=== PATIENT | male | born 1965 | race Caucasian/White ===

== ENCOUNTER 2024-04-10 11:46 | Inpatient (IN) ==
--- NOTE | 2024-04-10 12:11 | Emergency Department Note ---
Impression & Plan Chest pain, Elevated troponin ADMIT ED Provider Note HPI: History obtained from patient. The patient is a 58-year-old gentleman who presents the emergency department with a chief complaint of substernal chest pain that is been ongoing since last night. Patient states his pain has been relatively consistent, it is substernal in nature and he describes it as a "burning". Patient states he went to see his primary care doctor today and was advised to come to the emergency department for further assessment and to rule out ACS. On arrival here to the ED the patient is hemodynamically stable, he otherwise appears to be in no acute distress. ROS: - Per HPI Differential Diagnosis: Acute coronary syndrome, esophagitis, gastritis, acute pancreatitis, aortic dissection, pulmonary embolism, amongst other potential pathologies. *Outpatient medications and allergy history reviewed. PE: General: Alert HEENT: Normocephalic, trachea midline Eyes: Extraocular eye movement is intact, no scleral erythema Pulmonary: Clear to auscultation bilaterally, no wheezing Cardio: Regular rate and rhythm GI: Abdomen is soft to palpation : No suprapubic tenderness MSK: No evidence of trauma or malformation of the extremities, no edema Skin: No evidence of rash Neuro: Alert, no focal deficits Psychiatric: Cooperative INDEPENDENT INTERPRETATIONS: alarm security or surveillance monitor: (As interpreted by myself): - An order was placed for continuous cardiac monitoring - Patient was noted to be in sinus rhythm with a rate of 50 EKG: (As interpreted by myself): Rate: 51 Rhythm: Sinus bradycardia Intervals: Within normal limits ST changes: No ST elevation Time: 1156 Chest x-ray: (As interpreted by myself): Nonspecific opacities in the bilateral lower lung area Interventions provided in ED: -Aspirin, patient declined analgesia Medical Decision Making: IV was established and lab work obtained, patient was placed on campus monitor. Lab work shows no leukocytosis, hemoglobin is normal, platelet count is normal, CMP does not show any evidence of any critical findings, high-sensitivity troponin level does return at 166. EKG per my interpretation does not show any evidence of any ST elevation, patient states his chest pain is improved on my reassessment. He was given an aspirin in the ED. Chest x-ray suggestive of some bilateral lower lung reticulonodular opacities that are nonspecific in nature per the interpreting radiologist, could be inflammatory or infectious per the interpreting radiologist, low suspicion for infection at this time as the patient has not had any cough, fever, or leukocytosis. I discussed the above findings with the patient and his at the bedside, the patient expressed surprise at my suggestion of admission and initially was hesitant to be admitted however following further discussion with him and his at the bedside he was eventually agreeable to be admitted. I do feel that he should be admitted for further testing including possible diagnostic catheterization given his recent symptoms and elevated troponin. He appears comfortable and EKG does not suggest ST elevation DC therefore I do not feel that he needs emergent catheterization. I did discuss the patient's case with the on-call hospitalist service for [facility], I discussed the case with the on-call midlevel admitting provider, and the patient was placed for admission to the service of Dr. Ho. Consultants/Discussions held with other healthcare providers: -HospitalistDr. Ho Disposition discussion held by myself with: -Patient and patient's at the bedside Diagnosis: 1. Chest pain, acute 2. Elevated high-sensitivity troponin level, acute Disposition: Admission Ryan Foster DO Emergency Medicine Past Med/Surg History Problem List (Updated 04/10/24 @ 21:40 by Ryan Foster DO) NSTEMI (non-ST elevated myocardial infarction) Elevated troponin (Acute) Chest pain (Acute) Medical History CKD (chronic kidney disease), stage III Obesity Adjustment disorder Anxiety Hyperlipidemia DM type 2 (diabetes mellitus, type 2) HTN (hypertension) Social History Tobacco Type: Smokeless Tobacco (Dip or Chew) Second Hand Exposure: No; Do You Dip or Chew Tobacco: Yes; Hx Alcohol Use: Yes Alcohol type: beer and hard liquor Hx Substance Use: No Preferred Language: Moldovan Communication Ability: Effective Drama Teacher Required: No Beliefs That Will Affect Care: None Current Living Situation: Spouse Other Information That Helps Us Care for You: No Feels Safe at Home: Yes Safety Concerns: Feels Safe At This Time Assistive Devices: Glasses and Hearing Aid - Bilateral Allergies Allergies Allergy/AdvReac Type Severity Reaction Status Date / Time No Known Allergies Allergy Unverified 04/10/24 13:36 Home Meds Home Medications Medication Instructions Recorded Confirmed atorvastatin 40 mg tablet 40 mg PO QAM 04/10/24 04/10/24 empagliflozin 25 mg tablet 25 mg PO QAM 04/10/24 04/10/24 (Jardiance) glimepiride 4 mg tablet 4 mg PO QAM 04/10/24 04/10/24 hydrochlorothiazide 25 mg tablet 25 mg PO QAM 04/10/24 04/10/24 lisinopril 40 mg tablet 40 mg PO QAM 04/10/24 04/10/24 sertraline 100 mg tablet 50 mg PO QAM 04/10/24 04/10/24 Results & Data (ED) Vital Signs Vital Signs - 24 hr 04/10/24 11:51 04/10/24 11:56 04/10/24 11:56 Temperature 36.7 C Temperature Source Skin Pulse Rate 63 Pulse Rate [Finger] 72 Pulse Rhythm [Finger] Pulse Strength [Finger] Respiratory Rate 16 18 Respiratory Effort / Characteristics Non-Labored Spontaneous Respiratory Depth Normal Respiratory Pattern Regular Blood Pressure 134/94 Blood Pressure [Right Arm] 130/92 Blood Pressure Mean 107 Blood Pressure Mean [Right Arm] 104 Blood Pressure Position [Right Arm] Lying Pulse Oximetry 96 94 Oxygen Delivery Method Room Air Room Air Room Air Sepsis Recent Fever Within 48 Hours No Sepsis New/Unexplained Change in Mental Status N/A Sepsis Action Taken by Nursing No Action Required 04/10/24 12:19 04/10/24 12:25 04/10/24 14:00 Temperature Temperature Source Pulse Rate 68 Pulse Rate [Finger] 72 Pulse Rhythm [Finger] Regular Pulse Strength [Finger] Normal Respiratory Rate 20 Respiratory Effort / Characteristics Non-Labored Spontaneous Respiratory Depth Normal Respiratory Pattern Regular Blood Pressure Blood Pressure [Right Arm] 143/92 H Blood Pressure Mean Blood Pressure Mean [Right Arm] 109 Blood Pressure Position [Right Arm] Pulse Oximetry 96 96 Oxygen Delivery Method Room Air Room Air Sepsis Recent Fever Within 48 Hours Sepsis New/Unexplained Change in Mental Status Sepsis Action Taken by Nursing Laboratory Data 04/10/24 12:00 04/10/24 12:00 Lab Results 04/10/24 04/10/24 Range/Units 12:00 13:53 WBC 9.41 (4.8-10.8) K/ul RBC 4.96 (4.70-6.10) M/uL Hgb 16.4 (14.0-18.0) g/dl Hct 45.3 (42.0-52.0) % MCV 91.3 (80.0-100.0) fL MCH 33.1 (25.0-34.0) pg MCHC 36.2 H (32.0-36.0) g/dL RDW Std Deviation 41.5 (36.4-46.3) fL RDW Coeff of Curt 12.6 (11.5-14.5) % Plt Count 275 (130-400) K/uL MPV 10.7 (9.4-12.4) fL Immature Gran % (Auto) 0.4 % Neut % (Auto) 71.4 % Lymph % (Auto) 19.4 % [place] % (Auto) 7.0 % Eos % (Auto) 0.9 % Baso % (Auto) 0.9 % Neut # (Auto) 6.72 H (1.40-6.50) K/uL Lymph # (Auto) 1.83 (1.20-3.40) K/uL [place] # (Auto) 0.66 H (0.11-0.59) K/uL Eos # (Auto) 0.08 (0.00-0.50) K/uL Baso # (Auto) 0.08 (0.00-0.20) K/uL Immature Gran # (Auto) 0.04 (0.01-0.20) K/uL PT 10.3 (9.0-12.0) Seconds INR 0.9 (0.9-1.1) APTT 24 (21-31) Seconds PTT Ratio 0.9 Sodium 137 (136-145) mmol/L Potassium 4.1 (3.5-5.1) mmol/L Chloride 102 (98-107) mmol/L Carbon Dioxide 28 (21-32) mmol/L Anion Gap 7 (3-11) BUN 17 (6-23) mg/dl Creatinine 1.06 (0.6-1.4) mg/dl Est Cr Clr Drug Dosing 105.1 ml/min eGFR 82.37 BUN/Creatinine Ratio 16.0 (10-20) Glucose 173 H (70-99(Fasting)) mg/dl Calcium 9.4 (8.6-10.3) mg/dl Total Bilirubin 0.6 (0.2-1.0) mg/dl AST 18 (13-39) U/L ALT 29 (7-52) U/L Alkaline Phosphatase 78 (34-104) U/L Troponin I High Sens 166.9 H* 215.9 H* D (0-20) pg/ml Total Protein 7.3 (6.0-8.3) gm/dl Albumin 4.2 (3.4-5.0) gm/dl Globulin 3.1 (2.5-4.0) gm/dl Albumin/Globulin Ratio 1.4 (0.9-2) Lipase 16 (11-82) U/L Administered Medications Insulin Aspart (Insulin Aspart Per Unit Charge) 0 units SC ACHS ODESSA Stop: 05/10/24 16:37 Last Admin: 04/10/24 20:36 Dose: 3 units Documented By: DARIN Co-signed By: RADHA Admin: 04/10/24 17:24 Dose: 5 units Documented By: SHAREE Co-signed By: GORAN Ticagrelor (Ticagrelor 90 Mg Tab) 90 mg PO BID ODESSA Stop: 05/10/24 20:59 Last Admin: 04/10/24 20:37 Dose: 90 mg Documented By: DARIN Discontinued Medications Aspirin (Aspirin Chew 324 Mg) 324 mg PO NOW STA Stop: 04/10/24 13:14 Last Admin: 04/10/24 13:25 Dose: 324 mg Documented By: PUSHPA Atorvastatin Calcium (Atorvastatin 40 Mg Tab) 40 mg PO ONE ONE Stop: 04/10/24 15:01 Last Admin: 04/10/24 17:02 Dose: 40 mg Documented By: SHAREE Atropine Sulfate (Atropine Sulfate 0.1 Mg/Ml 10ml Syr) Confirm Administered Dose 1 mg IV .STK-MED ONE Stop: 04/10/24 16:01 Last Admin: 04/10/24 16:07 Dose: 1 mg Documented By: COLTEN Fentanyl Citrate (Fentanyl Citrate Pf 100 Mcg/2 Ml Vial) Confirm Administered Dose 100 mcg .ROUTE .STK-MED ONE Stop: 04/10/24 14:59 Last Increment: 04/10/24 16:13 Dose: 25 mcg Documented By: [id number] Heparin Sodium (Porcine) (Heparin (Porcine) 1000 Unit/Ml 10 Ml (Four H Agent Use Only)) Confirm Administered Dose 10,000 units .ROUTE .STK-MED ONE Stop: 04/10/24 14:59 Last Admin: 04/10/24 16:22 Dose: 11,000 units Documented By: COLTEN Heparin Sodium (Porcine) (Heparin (Porcine) 1000 Unit/Ml 10 Ml (Four H Agent Use Only)) Confirm Administered Dose 10,000 units .ROUTE .STK-MED ONE Stop: 04/10/24 16:21 Last Admin: 04/10/24 16:23 Dose: Not Given Documented By: COLTEN Heparin Sodium/Dextrose (Heparin Iv Adult Wt-Based Standard *No* Initial Bolus Protocol) 1 each IV ONE STA; Protocol Stop: 04/10/24 14:24 Last Admin: 04/10/24 17:08 Dose: Not Given Documented By: SHAREE Heparin Sodium/Sodium Chloride (Heparin In Nss Infusion 1000 Unit/500 Ml (2 U/Ml) Bag) Confirm Administered Dose 3,000 units IV .STK-MED ONE Stop: 04/10/24 14:59 Last Admin: 04/10/24 16:05 Dose: 3,000 units Documented By: CULLEN Heparin Sodium/Dextrose (Heparin Sodium/Dextrose) 25,000 units in 500 mls @ 34 mls/hr IV .[id number] [facility]; Protocol Stop: 05/10/24 14:44 Last Admin: 04/10/24 17:08 Dose: Not Given Documented By: SHAREE Ioversol (Optiray 350) Confirm Administered Dose 1 ml .ROUTE .STK-MED ONE Stop: 04/10/24 14:59 Last Admin: 04/10/24 16:14 Dose: 180 ml Documented By: CULLEN Midazolam HCl (Midazolam Hcl 1 Mg/Ml 2ml Vial) Confirm Administered Dose 2 mg .ROUTE .STK-MED ONE Stop: 04/10/24 14:58 Last Increment: 04/10/24 16:13 Dose: 1 mg Documented By: COLTEN Nicardipine HCl (Nicardipine 2,000 Mcg/20 Ml Syr) Confirm Administered Dose 2,000 mcg .ROUTE .STK-MED ONE Stop: 04/10/24 14:59 Last Admin: 04/10/24 16:06 Dose: 2,000 mcg Documented By: CULLEN Nitroglycerin/Dextrose (Nitroglycerin/D5w 100mcg/Ml 20ml Syr) Confirm Administered Dose 2,000 mcg .ROUTE .STK-MED ONE Stop: 04/10/24 14:59 Last Admin: 04/10/24 16:07 Dose: 2,000 mcg Documented By: CULLEN Ondansetron HCl (Ondansetron Inj 2 Mg/Ml 2 Ml Vial) Confirm Administered Dose 4 mg .ROUTE .STK-MED ONE Stop: 04/10/24 16:02 Last Admin: 04/10/24 16:07 Dose: 4 mg Documented By: COLTEN Ondansetron HCl (Ondansetron Inj 2 Mg/Ml 2 Ml Vial) Confirm Administered Dose 4 mg .ROUTE .STK-MED ONE Stop: 04/10/24 16:12 Last Admin: 04/10/24 16:23 Dose: 4 mg Documented By: COLTEN Ticagrelor (Ticagrelor 90 Mg Tab) Confirm Administered Dose 180 mg .ROUTE .Dealised- MED ONE Stop: 04/10/24 16:04 Last Admin: 04/10/24 16:14 Dose: 180 mg Documented By: COLTEN Imaging Data Radiologist's Impression: Chest X-Ray 04/10/24 12:03 XR chest 1V portable HISTORY: 58 years-old Male Chest pain, nonspecific COMPARISON: None TECHNIQUE: AP view the chest FINDINGS: Cardiomediastinal and hilar silhouettes are within normal limits. Reticular nodular opacities of lung bases. No pneumothorax, pleural effusion or lobar airspace consolidation. Bones appear grossly intact. IMPRESSION: Bilateral reticulonodular opacities which are most pronounced in the lung bases, likely infectious or inflammatory. ACT 112: Negative or not required by law. The above report was generated using voice recognition software. It may contain grammatical, syntax or spelling errors. Electronically signed by: Paulo Hayes M.D. 04/10/2024 12:28 PM Discharge Plan Visit Data Chief Complaint: Chest Pain Stated Complaint: CHEST PAIN ED Provider: Ryan Foster Discharge Problem: Chest pain, Elevated troponin Patient Disposition: Admitted As Inpatient Discharge Instructions Interventions: ED Discharge Assessment Last Done: 04/10/24 15:10
--- NOTE | 2024-04-10 12:30 | XRay Report ---
XR chest 1V portable HISTORY: 58 years-old Male Chest pain, nonspecific COMPARISON: None TECHNIQUE: AP view the chest FINDINGS: Cardiomediastinal and hilar silhouettes are within normal limits. Reticular nodular opacities of lung bases. No pneumothorax, pleural effusion or lobar airspace consolidation. Bones appear grossly intac t. IMPRESSION: Bilateral reticulonodular opacities which are most pronounced in the lung bases, likely i nfectious or inflammatory. ACT 112: Negative or not required by law. The above report was generated using voice recognition software. It may contain grammatical, syntax o r spelling errors. Electronically signed by: Paulo Hayes M.D. 04/10/2024 12:28 PM
[2024-04-10 12:32] LABS: Basophils # (auto) 0.08 K/uL (0.00-0.20); Basophils % (auto) 0.9 %; Eosinophils # (auto) 0.08 K/uL (0.00-0.50); Eosinophils % (auto) 0.9 %; Hematocrit (blood only) 45.3 % (42.0-52.0); Hemoglobin 16.4 g/dl (14.0-18.0); Immature Granulocytes # (auto) 0.04 K/uL (0.01-0.20); Immature Granulocytes % (auto) 0.4 %; Lymphocytes # (auto) 1.83 K/uL (1.20-3.40); Lymphocytes % (auto) 19.4 %; Mean Corpuscular Hemoglobin 33.1 pg (25.0-34.0); Mean Corpuscular Hgb Conc 36.2 g/dL (32.0-36.0); Mean Corpuscular Volume 91.3 fL (80.0-100.0); Mean Platelet Volume 10.7 fL (9.4-12.4); Monocytes # (auto) 0.66 K/uL (0.11-0.59); Neutrophils # (auto) 6.72 K/uL (1.40-6.50); Neutrophils % (auto) 71.4 %; Platelet Count 275 K/uL (130-400); RDW Coefficient of Variation 12.6 % (11.5-14.5); RDW Standard Deviation 41.5 fL (36.4-46.3); Red Blood Count 4.96 M/uL (4.70-6.10); White Blood Count 9.41 K/ul (4.8-10.8)
[2024-04-10 12:47] LABS: Albumin Globulin Ratio 1.4 (0.9-2); Albumin Level 4.2 gm/dl (3.4-5.0); Bilirubin,Total 0.6 mg/dl (0.2-1.0); Calcium 9.4 mg/dl (8.6-10.3); Creatinine Clr Calc Pharmacy 105.1 ml/min; Globulin 3.1 gm/dl (2.5-4.0); Potassium 4.1 mmol/L (3.5-5.1); Total Protein 7.3 gm/dl (6.0-8.3)
[2024-04-10 13:03] LABS: INR 0.9 (0.9-1.1); Partial Thromboplastin Ratio 0.9; Partial Thromboplastin Time 24 Seconds (21-31); Prothrombin Time 10.3 Seconds (9.0-12.0)
[2024-04-10 13:19] LABS: Troponin I High Sensitivity 166.9 pg/ml (0-20)
[2024-04-10] MEDS: ASPIRIN CHEW 324 MG PO STA (13:25)
--- NOTE | 2024-04-10 13:31 | History & Physical Report ---
Date of Service April 10, 2024 Assessment & Plan (1) Chest pain: (2) Elevated troponin: Plan Gino Denise is a 58-year-old male with past medical history significant for DM type II, dyslipidemia, HTN, CKD stage III and anxiety who presented to the ED via referral from his PCP for evaluation of chest pain. Patient was seen earlier today by his PCP secondary to persistent, dull centralized chest pain since midnight with associated mild nausea. EKG in the outpatient office revealed NSR but possible T wave versions in V3 and V4, therefore he was referred to the ED for further evaluation. Elevated Troponin, Chest Pain Rule-Out: Additional history as per HPI. EKG in the ED personally reviewed and without any overt ST changes. Initial troponin was 166.9 at 12:00 and repeat troponin was 215.9 at 13:53. S/p 324mg ASA in the ED, made NPO. Cardiology consulted; case discussed with Dr. Cifuentes via TT --> Patient was initially going to be placed on IV heparin drip but is now going to the shop laborer with Dr. Do, therefore the IV heparin order was stopped. Echocardiogram results pending. Continue to trend troponin Q6H, EKG daily x 2. Begin ASA 81mg daily tomorrow AM unless otherwise directed by cardiology. SL nitro PRN on board. Appreciate any further cardiology input/recommendations. DM Type II: Hold home agents, SSI regimen while inpatient. BSG checks ACHS. Most recent Hgb A1c was 7.1% approximately 1 month ago as an outpatient. CKD Stage III: Cr stable on admission at 1.06, baseline Cr ~1.1 per chart review. Avoid nephrotoxic meds when able. Monitor renal function closely and renally dose medications when able. Incidental CXR Finding: CXR in the ED revealed bilateral reticulonodular opacities most pronounced at the lung bases, likely infectious versus inflammatory. Presenting labs without evidence of leukocytosis and patient is without any respiratory complaints or sick symptoms - denies any cough, recent infections, fevers/chill or body aches. Procalcitonin pending however low suspicion for infectious etiology as this time, continue to follow. Other Chronic Medical Conditions: * Anxiety - Can continue home Zoloft as prescribed. * HTN - Slightly hypertensive at 143/92 on admission, continue home BP medications for now unless otherwise directed by cardiology. DVT Prophylaxis: SCDs/TEDs for now - patient to shop laborer. Code Status: FULL CODE PCP: Luis Benitez MD Disposition: Admit to PCU/Telemetry following cardiac catheterization. Patient seen in collaboration with Dr. Ho. Please see addendum. I spent a total of 55 minutes coordinating, documenting, and providing care for this patient excluding time spent in the performance of separately billed services. This included personally reviewing all current laboratories and imaging studies, medical reconciliation, outpatient chart review and discussion with specialists. This chart was completed in part utilizing Speech Voice Recognition Software. Grammatical errors, random word insertions, pronoun errors, and incomplete sentences are an occasional consequence of this system due to software limitations, ambient noise, and hardware issues. Any formal questions or concerns about the content, text, or information contained within the body of this dictation should be directly addressed to the provider for clarification. History of Present Illness Chief Complaint: Chest Pain Primary Care Provider: Luis Benitez MD Gino Denise is a 58-year-old male with past medical history significant for DM type II, dyslipidemia, HTN, CKD stage III and anxiety who presented to the ED via referral from his PCP for evaluation of chest pain. History obtained from patient, at bedside and associated chart review. Patient seen at bedside with Dr. Ho. Patient was seen earlier today by his PCP secondary to persistent, dull centralized chest pain since midnight with associated mild nausea. EKG in the outpatient office revealed normal sinus rhythm but possible T wave versions in V3 and V4, therefore he was referred to the ED for further evaluation. EKG in the ED was rather unremarkable however his initial troponin was elevated at 166.9, repeat troponin pending. Patient reports that the pain does intermittently become sharp at times. Pain remains in the central chest re gion and does not radiate. He does not experience any shortness of breath with this pain however he does endorse some nausea as previously mentioned, no episodes of vomiting. When the chest pain started around midnight, it woke him from his sleep. He tried to take some antacids and Pepto-Bismol without any relief of the chest pain. He was loaded with 324mg ASA in the ED. Mentions that his chest pain is unchanged and is currently about a 3 out of 10. Denies any lightheadedness/dizziness. BP has been controlled at home. Mentions his diabetes is well-controlled on his current regimen, BSGs at home run around 130s. Last meal was yesterday at 3PM. Patient reports that he was previously experiencing some intermittent episodes of centralized chest pain last week prior to this acute occurrence. Mentions the pain during those previous episodes felt like it does now. He did not notice any changes with exertion or rest when he had those episodes of chest pain however he did become diaphoretic when the pain would occur - which did not happen today. He has no previous issues with indigestion. Mentions that those episodes of chest pain last week would last anywhere from a few minutes to a couple of hours at most. He did have some nausea with those episodes as well. Patient reports that his father had numerous "heart operations" beginning when he was around 62 years old - he is unsure of the specifics. Patient does use chewing tobacco regularly. Endorses only social alcohol use. No prior history of [place] per patient or his . CXR in the ED revealed bilateral reticulonodular opacities most pronounced at the lung bases, likely infectious versus inflammatory. Presenting labs without evidence of leukocytosis and patient is without any respiratory complaints or sick symptoms - denies any cough, recent infections, fevers/chill or body aches. Procalcitonin pending however low suspicion for infectious etiology as this time. Allergies Allergy/AdvReac Type Severity Reaction Status Date / Time No Known Allergies Allergy Unverified 04/10/24 13:36 Home Medications Medication Instructions Recorded Confirmed Type atorvastatin 40 mg tablet 40 mg PO QAM 04/10/24 04/10/24 History empagliflozin 25 mg tablet 25 mg PO QAM 04/10/24 04/10/24 History (Jardiance) glimepiride 4 mg tablet 4 mg PO QAM 04/10/24 04/10/24 History hydrochlorothiazide 25 mg tablet 25 mg PO QAM 04/10/24 04/10/24 History lisinopril 40 mg tablet 40 mg PO QAM 04/10/24 04/10/24 History sertraline 100 mg tablet 50 mg PO QAM 04/10/24 04/10/24 History Past Med/Surg History Problem List (Updated 04/10/24 @ 15:14 by Oswaldo Cifuentes DO) NSTEMI (non-ST elevated myocardial infarction) Elevated troponin Chest pain Medical History CKD (chronic kidney disease), stage III Obesity Adjustment disorder Anxiety Hyperlipidemia DM type 2 (diabetes mellitus, type 2) HTN (hypertension) Social History Smoking Status: Never smoker Hx Substance Use: No Preferred Language: Taiwanese Feels Safe at Home: Yes Review of Systems Review of Systems: At least ten systems reviewed and negative, except as noted in the HPI. Physical Exam Physical Exam: Please refer to Dr. Ho's addendum for physical examination findings. Results & Data Results & Data Vital Signs (Past 12 Hours) Vital Signs Temp Pulse Pulse Resp BP BP Pulse Ox 04/10/24 12:25 96 04/10/24 12:19 68 04/10/24 11:56 04/10/24 11:56 72 18 130/92 94 04/10/24 11:51 36.7 C 63 16 134/94 96 O2 Del Method 04/10/24 12:25 Room Air 04/10/24 12:19 04/10/24 11:56 Room Air 04/10/24 11:56 Room Air 04/10/24 11:51 Room Air Laboratory Results Short CBC 04/10/24 Range/Units 12:00 WBC 9.41 (4.8-10.8) K/ul Hgb 16.4 (14.0-18.0) g/dl Hct 45.3 (42.0-52.0) % Plt Count 275 (130-400) K/uL BMP 04/10/24 12:00 Sodium 137 Potassium 4.1 Chloride 102 Carbon Dioxide 28 BUN 17 Creatinine 1.06 Glucose 173 H Calcium 9.4 Liver Function 04/10/24 Range/Units 12:00 Total Bilirubin 0.6 (0.2-1.0) mg/dl AST 18 (13-39) U/L ALT 29 (7-52) U/L Alkaline Phosphatase 78 (34-104) U/L Albumin 4.2 (3.4-5.0) gm/dl Diagnostic Findings Chest X-Ray 04/10/24 12:03 XR chest 1V portable HISTORY: 58 years-old Male Chest pain, nonspecific COMPARISON: None TECHNIQUE: AP view the chest FINDINGS: Cardiomediastinal and hilar silhouettes are within normal limits. Reticular nodular opacities of lung bases. No pneumothorax, pleural effusion or lobar airspace consolidation. Bones appear grossly intact. IMPRESSION: Bilateral reticulonodular opacities which are most pronounced in the lung bases, likely infectious or inflammatory. ACT 112: Negative or not required by law. The above report was generated using voice recognition software. It may contain grammatical, syntax or spelling errors. Electronically signed by: Paulo Hayes M.D. 04/10/2024 12:28 PM Medications Administered Discontinued Medications Aspirin (Aspirin Chew 324 Mg) 324 mg PO NOW STA Stop: 04/10/24 13:14 Last Admin: 04/10/24 13:25 Dose: 324 mg Documented By: NJM Code Status & VTE Plan Code Status FULL CODE Supervising Physician Co-Signing Physician Notes Patient is a 58-year-old male with history of diabetes mellitus type 2, hypertension, hyperlipidemia, mood disorder, CKD stage III and other medical problems presents with history of retrosternal chest pain which has been dull aching type, nonradiating associated with nausea. Patient states the chest pain started 2 days ago which spontaneously resolved and yesterday night patient woke up from sleep due to chest pain. He denies any shortness of breath, vomiting, diaphoresis, cough. He denies any exacerbating or relieving factors. Initially presumed to be acid reflux and used Pepto-Bismol which did not help. Please review HPI for complete details of presentation. I personally reviewed blood work and imaging studies. Initial troponin elevated at 166. EKG showed sinus bradycardia with poor R wave progression with no significant ST changes currently. Currently chest pain is 2/10 and is unimproved with aspirin use. Physical Exam: Vitals signs as noted above General Appearance: Obese, no apparent distress Head: normocephalic, Atraumatic Eyes: normal inspection, EOMI Neck: supple, Trachea midline Respiratory/Chest: Normal breath sounds, CTA, No accessory muscle use Cardiovascular: S1, S2, No murmur Abdomen/GI:Soft, Non tender, Bowel sounds present Extremities/Musculoskeletal:normal inspection, trace edema Neurologic/Psych:AAOX3, grossly no focal neurological deficits Skin: normal color, warm Chest pain rule out ACS NSTEMI Troponin elevated Echo showed EF 55 to 60%. Moderate sized septal and anteroseptal wall motion abnormality with hypokinesis of the segments, grade 1 diastolic dysfunction. Received aspirin in ED Initially plan to be started on IV heparin, cardiology recommended heart catheterization Will check HbA1c, lipid panel Nitroglycerin as needed Continue aspirin Appreciate cardiology input Continue home Lipitor, lisinopril Further management based on cath results I personally interviewed and examined at bedside. Patient's care is coordinated with Marge Mcleod PA-C. I have reviewed the advanced practitioner's documentation, and I agree with plan of care. Please refer to the documentation above for details of patient's presentation and for discussion of other issues. I spent a total [id number] coordinating, documenting, and providing care for this patient excluding time spent in the performance of separately billed services. (1) Chest pain Chest pain type: unspecified Qualified Code(s): R07.9 - Chest pain, unspecified
--- NOTE | 2024-04-10 15:18 | Cardiology Consultation ---
Date of Consultation April 10, 2024 Assessment & Plan (1) NSTEMI (non-ST elevated myocardial infarction): Bedside transthoracic echocardiogram was performed in the emergency department revealing normal LVEF in the range of 55 to 60%, there is a subtle distal anteroseptal and distal inferoseptal wall motion abnormality. The patient has already received 324 mg of aspirin. Will proceed with a dose of atorvastatin, home dose of 40 mg x 1 now Case reviewed with Dr. oD with interventional cardiology. Will plan for invasive coronary angiography in an expedited fashion this afternoon. Post procedure will add metoprolol as tolerated. (2) HTN (hypertension): Continue prior to hospital lisinopril and HCTZ. (3) DM type 2 (diabetes mellitus, type 2): Hold glimepiride and Jardiance for now. Insulin sliding scale as needed as per the primary team. (4) Hyperlipidemia: Increase home dose of atorvastatin to 80 mg daily. History of Present Illness History of Present Illness Gino Denise is a 58 year old male seen in cardiology consultation per the request of Marge Mcleod PA-C for the evaluation of chest and with concerns of an acute coronary syndrome. The patient has a history of hypertension, dyslipidemia, and type 2 diabetes mellitus that was diagnosed approximately 3 years ago. He has not followed with cardiology in the past. He states that last week he had on and off again chest discomfort that would last a few hours and then resolved on its own. It did not necessarily seem to be associated with aerobic activity. He thought that it was related to indigestion. Last night at midnight the discomfort returned and woke him up from sleep and has persisted to a mild severity in the meantime. At present, the patient was seen in the emergency department, room C2B. He was in no acute distress but described ongoing 2/10 intensity chest pressure. He denies any recent history of travel. He has no known drug allergies. His last meal was a hamburger at approximately 6 PM last evening. Family History: Father is alive at the age of 91 with a history of coronary heart disease first diagnosed in his 60s he had a history of multivessel coronary bypass graft surgery and valve surgery Patient's mother in her 80s due to cancer, no history of coronary disease The patient has 2 brothers and a half sister, none of whom have heart problems. 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 He does not smoke cigarettes. He smokes a rare cigar He is . His Shayla accompanies him at the bedside. Allergies Allergy/AdvReac Type Severity Reaction Status Date / Time No Known Allergies Allergy Unverified 04/10/24 13:36 Home Medications Medication Instructions Recorded Confirmed Type atorvastatin 40 mg tablet 40 mg PO QAM 04/10/24 04/10/24 History empagliflozin 25 mg tablet 25 mg PO QAM 04/10/24 04/10/24 History (Jardiance) glimepiride 4 mg tablet 4 mg PO QAM 04/10/24 04/10/24 History hydrochlorothiazide 25 mg tablet 25 mg PO QAM 04/10/24 04/10/24 History lisinopril 40 mg tablet 40 mg PO QAM 04/10/24 04/10/24 History sertraline 100 mg tablet 50 mg PO QAM 04/10/24 04/10/24 History Patient History Medical History CKD (chronic kidney disease), stage III Obesity Adjustment disorder Anxiety Hyperlipidemia DM type 2 (diabetes mellitus, type 2) HTN (hypertension) Social History Smoking Status: Never smoker Preferred Language: Azeri Feels Safe at Home: Yes Review of Systems Review of Systems: All systems reviewed & are unremarkable except as noted in HPI & below Physical Exam Physical Exam: Temp Pulse Resp BP Pulse Ox O2 Del Method 36.7 C 72 20 143/92 H 96 Room Air 04/10/24 11:51 04/10/24 14:00 04/10/24 14:00 04/10/24 14:00 04/10/24 14:00 04/10/24 14:00 General: no acute distress and stated age Eyes: conjunctiva are pink and non-injected, sclera clear Neck: normal jugular venous pulse, no hepatojugular reflux Chest: normal shape and normal respiratory effort Lungs: clear to auscultation and percussion Cardiac Exam: - regular heart sounds, no murmurs, rubs, or gallops, no jugular venous distention Abdomen: abdomen soft, non-tender, no abnormal masses and no hepatosplenomegaly Musculoskeletal: no gait disturbance, no weakness Extremities: no edema and no cyanosis Neuro:awake, conversant, follows commands, no focal motor deficits Psych: appropriate affect and insight. Results & Data Laboratory Results Cardiac Enzymes 04/10/24 04/10/24 Range/Units 12:00 13:53 AST 18 (13-39) U/L Troponin I High Sens 166.9 H* 215.9 H* D (0-20) pg/ml Coagulation 04/10/24 Range/Units 12:00 PT 10.3 (9.0-12.0) Seconds APTT 24 (21-31) Seconds CBC 04/10/24 Range/Units 12:00 WBC 9.41 (4.8-10.8) K/ul RBC 4.96 (4.70-6.10) M/uL Hgb 16.4 (14.0-18.0) g/dl Hct 45.3 (42.0-52.0) % Plt Count 275 (130-400) K/uL Neut # (Auto) 6.72 H (1.40-6.50) K/uL Lymph # (Auto) 1.83 (1.20-3.40) K/uL Daniels # (Auto) 0.66 H (0.11-0.59) K/uL Eos # (Auto) 0.08 (0.00-0.50) K/uL Baso # (Auto) 0.08 (0.00-0.20) K/uL Comprehensive Metabolic Panel 04/10/24 Range/Units 12:00 Sodium 137 (136-145) mmol/L Potassium 4.1 (3.5-5.1) mmol/L Chloride 102 (98-107) mmol/L Carbon Dioxide 28 (21-32) mmol/L BUN 17 (6-23) mg/dl Creatinine 1.06 (0.6-1.4) mg/dl Glucose 173 H (70-99(Fasting)) mg/dl Calcium 9.4 (8.6-10.3) mg/dl AST 18 (13-39) U/L ALT 29 (7-52) U/L Alkaline Phosphatase 78 (34-104) U/L Total Protein 7.3 (6.0-8.3) gm/dl Albumin 4.2 (3.4-5.0) gm/dl Intake and Output 04/10/24 04/10/24 04/10/24 06:59 14:59 22:59 Other: Weight 125.7 kg Weight Measurement Method Chair Scale Patient Weight 04/11/24 06:59 Weight 125.7 kg Outpatient laboratory studies performed 02/12/2024: Glycerides 248 Total cholesterol 172 HDL 45 LDL 194 Hemoglobin A1c at 7.1% Diagnostic Findings An EKG was performed on 04/10/2024 at 1104 at the patient's primary care provider's office revealing sinus rhythm at 75 bpm with occasional PVCs. Subtle ST segment elevation was noted only in lead III with mild ST segment depression otherwise in the anterior, and lateral precordial leads as well as the high lateral leads I and aVL.Compared to a previous tracing dating back to September,, the ST segment changes are new. Repeat EKG performed in the emergency department today 04/10/2024 at 11:56 AM: Sinus bradycardia 51 bpm, poor R wave progression noted in the anterior precordial leads. The previous ST segment changes have resolved. Chest x-ray: Radiology report describes bilateral reticular nodular opacities which are most pronounced in the lung bases suggestive of infectious or inflammatory etiology
--- NOTE | 2024-04-10 15:27 | Pre Anesthesia Assessment ---
Date of Service April 10, 2024 Pre Sedation Assessment Vital Signs Temp Pulse Pulse Resp BP BP Pulse Ox 04/10/24 15:16 78 17 130/94 98 04/10/24 14:00 72 20 143/92 H 96 04/10/24 12:25 96 04/10/24 12:19 68 04/10/24 11:56 04/10/24 11:56 72 18 130/92 94 04/10/24 11:51 36.7 C 63 16 134/94 96 O2 Del Method 04/10/24 15:16 Room Air 04/10/24 14:00 Room Air 04/10/24 12:25 Room Air 04/10/24 12:19 04/10/24 11:56 Room Air 04/10/24 11:56 Room Air 04/10/24 11:51 Room Air Cardiovascular RRR, no murmur, no edema Respiratory normal respiratory effort, lungs clear to auscultation Pre-Sedation Airway Assessment Smoking Status: Never smoker Hx Sleep Apnea: No Short, Thick Neck: No Thyromental Distance: > or= 3.5 Finger Breadths Oral Cavity: + WNL Mallampati Class: III ASA: ASA2 NPO Status Date of Last Intake of Fluids: 04/09/24 Time of Last Intake of Fluids: 23:30 Date of Last Intake of Solid Food: 04/09/24 Time of Last Intake of Solid Foods: 23:30 Notes The planned sedation has been discussed with the patient. Informed Consent was obtained. I have identified the patient, determined the appropriateness of sedation and have assessed the patient immediately prior to the procedure. All medicine(s) and interventions are by my order.
[2024-04-10] MEDS: niCARdipine 2,000 MCG/20 ML SYR ONE (16:06)
[2024-04-10] MEDS: NITROGLYCERIN/D5W 100MCG/ML 20ML SYR ONE (16:07)
[2024-04-10] MEDS: ATROPINE SULFATE 0.1 MG/ML 10ML SYR IV ONE (16:07)
[2024-04-10] MEDS: ONDANSETRON INJ 2 MG/ML 2 ML VIAL ONE ×2 (16:07→16:23)
[2024-04-10] MEDS: fentaNYL citrate PF 100 MCG/2 ML VIAL ONE (16:13)
[2024-04-10] MEDS: MIDAZOLAM HCL 1 MG/ML 2ML VIAL ONE (16:13)
[2024-04-10] MEDS: TICAGRELOR 90 MG TAB ONE (16:14)
[2024-04-10] MEDS: OPTIRAY 350 ONE (16:14)
[2024-04-10] MEDS: HEPARIN (PORCINE) 1000 UNIT/ML 10 ML (CATH LAB USE ONLY) ONE ×2 (16:22→16:23)
--- NOTE | 2024-04-10 16:27 | Post Anesthesia Assessment ---
Date of Service April 10, 2024 Post Sedation Assessment Vital Signs Temp Pulse Pulse Resp BP BP Pulse Ox 04/10/24 15:16 78 17 130/94 98 04/10/24 14:00 72 20 143/92 H 96 04/10/24 12:25 96 04/10/24 12:19 68 04/10/24 11:56 04/10/24 11:56 72 18 130/92 94 04/10/24 11:51 36.7 C 63 16 134/94 96 O2 Del Method 04/10/24 15:16 Room Air 04/10/24 14:00 Room Air 04/10/24 12:25 Room Air 04/10/24 12:19 04/10/24 11:56 Room Air 04/10/24 11:56 Room Air 04/10/24 11:51 Room Air Recovery Score Activity: Moves 4 extremities Respiration: Deep Breath/Cough Circulation: +/-20% PreAnes Value Consciousness: Fully Awake Oxygen Saturation: > 92% On Room Air Discharge Sedation Level of Care: Fast Track Phase II Post Sedation Plan On clinical assessment, the patient appears to have tolerated the sedation without complications. Patient is recovering as anticipated. Patient will continue to be monitored by nursing and may be discharged when sedation discharge criteria are met per below protocol. Upon Completions of procedure up to 15 minutes continue every 5 minute vital signs and the P.A.R. score; then discharge to a Phase I or Fast Track to Phase II per the following guidelines: * Discharge Patient to appropriate Phase II area if PAR is 8 or greater or return to pre- procedure baseline. The post - procedure orders will be as directed. * If PAR score is less than 8 or not return to pre-procedure baseline then patient will follow Phase I monitoring till PAR is reached for Phase II. The Phase I may be done in procedure room or may call to secure a Phase I area. * If naloxone or flumazenil are used for reversal, hold in Phase I for continued monitoring from when last reversal dose was given for a minimum of 60 minutes or longer pending the nurse and/or physician discretion of patient condition before discharge to Phase II. Please call the Sedation Physician to re-evaluate and complete post-note for discharge to Phase II area. Do NOT discharge from procedure sedation or Phase 1 until post- sedation evaluation note is complete by procedure /sedation MD Sedation Discharge Instructions to be given to the patient at discharge to home. [facility] Procedure Codes (Charges) Indication for Procedure Indication for procedure: NSTEMI
[2024-04-10] MEDS ORDERED: GLUCAGON FOR INJ 1 MG VIAL SQ PRN (16:38)
[2024-04-10] MEDS ORDERED: ACETAMINOPHEN 325 MG TAB PO PRN (16:38)
[2024-04-10] MEDS ORDERED: POLYETHYLENE (MIRALAX) 17 GM PACK PO PRN (16:38)
[2024-04-10] MEDS ORDERED: GLUCOSE 10 TAB/TUBE PO PRN (16:38)
[2024-04-10] MEDS ORDERED: MAGNESIUM HYDROXIDE SUSP 30 ML UDC PO PRN (16:38)
[2024-04-10] MEDS ORDERED: DEXTROSE 50% 50 ML SYRINGE IV PRN (16:38)
[2024-04-10] MEDS ORDERED: CARBOHYDRATES FOR HYPOGLYCEMIA PO PRN (16:38)
[2024-04-10] MEDS ORDERED: NITROGLYCERIN SL 0.4 MG/TAB TAB SL PRN (16:38)
[2024-04-10] MEDS ORDERED: GLUCOSE 40% GEL 15 GM TUBE PO PRN (16:38)
[2024-04-10] MEDS ORDERED: ONDANSETRON INJ 2 MG/ML 2 ML VIAL IV PRN (16:38)
--- NOTE | 2024-04-10 16:57 | Cardiac Catheterization ---
[facility] Data: Financial Health Counselor Cardiac Status Clinical evaluation leading to the procedure CAD Presenation: Non STEMI Anginal Classification: CCS IV Heart Failure: No Cardiogenic Shock within 24 Hours: No Cardiac Arrest within 24 Hours: No Imaging Studies Past 6 Months: No Stress Studies Past 6 Months: No Coronary Anatomy Dominant: Right Left Main (% Stenosis): Normal LAD (% Stenosis): Mid (20 to 30%) D1 (% Stenosis): Normal D2 (% Stenosis): Normal Circumflex (% Stenosis): Normal OM1 (% Stenosis): Normal OM2 (% Stenosis): Normal L PL1 (% Stenosis): Normal RCA (% Stenosis): Proximal (30%) and Mid (100%) R PDA (% Stenosis): Normal R PL1 (% Stenosis): Normal Diagnostic Physicians Name: Oswaldo Do MD, PhD Closure Device Percutaneous Entry Location: Radial Closure Device: Radial Band Recommendations: Medical Therapy and/or Counseling and PCI without planned CABG PCI Indication: PCI for high risk Non-LONNIE Lesion Segment Name: Mid RCA Culprit Artery: Yes Stenosis Prior to Rx (%): 100% Chronic Total Occlusion: No Pre-Procedure NICOLLE Flow: 0 Previously Treated Lesion: No Lesion Complexity: Non-High/Non-C Lesion Length (mm): 25 Thrombus Present: Yes Bifurcation Lesion: No Guidewire Across Lesion: Yes Intraprocedure Events Significant Disection: No Perforation: No Cardiac Cath Procedure Full Procedure Date April 10, 2024 Pre-Procedure Diagnosis Pre-Procedure Diagnosis: Non STEMI AUC Score AUC Score: 07 Post-Procedure Diagnosis Post-Procedure Diagnosis: Severe CAD and Successful PCI Procedure(s) Performed Procedure(s) Performed: Coronary Angiography and Drug Eluting Stent Mobile Application Architect Oswaldo Do MD, PhD Estimated Blood Loss Estimated Blood Loss: 5cc Medication(s) Medication(s): Atropine, Fentanyl, Heparin, Lidocaine 1%, Nicardipine, Nitroglycerin and Versed Summary of Findings Brief description: Patient was brought emergently to the cardiac catheterization suite where he was shaved and prepped in a sterile fashion. Sedated using IV Versed and fentanyl. Soft tissues of the right wrist were anesthetized using 2 mL of 1% Xylocaine. The right radial artery was accessed with a modified Seldinger technique and a 6 [place] radial artery glide sheath was placed. Patient was provided anticoagulation with IV heparin and antispasmodics including nicardipine and nitroglycerin. All catheters were advanced and exchanged over a 0.035 J-tip wire. Patient had a short left main so left coronary angiography was performed using both a 5 [place] 4 diagnostic catheter and a 5 [place] EBU 3.0 guide catheter. Orthogonal views were utilized. Right coronary angiography was performed in orthogonal views with a 5 [place] JR4 diagnostic catheter. Decision was made to proceed with PCI. ACT was checked and additional heparin was provided to maintain therapeutic anticoagulation. A 6 [place] JR4 guide catheter was used to engage the right coronary. BMW reversal guidewire was advanced and positioned distally in the RCA. Patient developed bradycardia and hypotension. He responded to atropine and normal saline infusion. Lesion was predilated using a 2.5 x 12 mm trek balloon inflated twice to 8 phil. A 3.5 x 30 mm Alonso drug-eluting stent was then positioned across the lesion where it was deployed initially at 14 phil. A second inflation was performed up to 17 phil. Balloon catheter was removed. Sack Repairer angiography was performed. The mid and distal stent were then postdilated using an NC Miguel 4.0 x 12 mm bal loon. 16 phil in the mid segment and 18 phil in the proximal segment of the stent. The balloon was then removed. Guidewire was removed and final angiographic evaluation was performed in orthogonal views. Guide catheter was removed. ACT was checked and the radial sheath was removed. Hemostasis was obtained using the TR band. Patient remained hemodynamically stable and was asymptomatic. He received oral Brilinta 180 mg p.o. and additional IV heparin was provided. He was then transferred to the floor for further workup and management. This ended the case. Coronary angiography findings: LMT-Short and large caliber. Bifurcates into LAD and circumflex. No significant disease. [id number]-[id number] and transapical. Gives a large branching first diagonal and a large second diagonal. Proximal vessel has diffuse luminal irregularities, mid segment with 20 to 30% stenosis and distally there is only mild luminal irregularities. The branch vessels have no angiographically significant disea se. LCx-this is large caliber and nondominant. Travels in the AV groove. Gives a small OM1 and a medium caliber OM 2. Terminates distally as a large branching posterolateral. There is no more than mild luminal irregularities in the circumflex and its branches. RCA-this is large caliber and dominant. Proximally there is mild less than 30% stenosis. The mid segment is 100% occluded at the origin of the large RV marginal branch. There is NICOLLE 0 flow at this point. The distal RCA fills faintly via [id number] collateralization. There is a PDA and posterolateral branch. PCI of RCA-0% residual stenosis post PCI NICOLLE-3 flow post PCI No evidence of dissection or perforation post PCI Large PDA and large branching posterolateral have no more than mild luminal irregularities Summary: 1. Myocardial infarction secondary to occlusion of the mid RCA. Successful PCI with implantation of a long large caliber drug-eluting stent. 2. Mild nonocclusive coronary disease as described elsewhere 3. Patient will be on dual antiplatelet therapy with aspirin 81 mg daily and Brilinta 90 mg p.o. twice daily. 4. Guideline directed medical therapy for secondary prevention of coronary disease as directed by his primary termite control servicer. Hemodynamics Rest Ao:: 99/78 mmHg Final Ao: 92/65 mmHg LV: Not performed Recommendations Recommendations: Medical Therapy and/or Counseling and PCI without planned CABG Radiation Exposure (mGy) 2719 mGy, fluoroscopy time 10.4 minutes Contrast (mls) 180 Anesthesia 1 mg Versed, 25 mcg fentanyl IV. Start time 1537, end time 1613 Procedural Complication(s) None Disposition Financial Health Counselor Holding/Recovery I attest to the content of the Intraoperative Record and any orders documented therein. Any exceptions are noted below. [facility] Card Cath Procedure Codes Cardiac Catheterization Procedure 1: Cardiovascular Cath Procedures: 38759 Coronaries Moderate Sedation Procedure 1: Sedation/Anesthesia: 60840 Mod Sedation by the same physician;Init15 Min Child Age 5 & Up (Initial 15 minutes, start time 153) Procedure 2: Sedation/Anesthesia: 16746 Mod Sedation by the same physician; Ea [id number] Minutes (Additional 21 minutes, end time 1613) Stenting Procedure 1: Cardiovascular Stent Procedures: 26992 Perc transluminal revascularization of acute sub/total occl, aMI (RCA) PG Care Time/CCT Total # of Minutes Spent Total Time Spent with Patient: Total time spent is greater than 50% in coordination of care (as documented) at patient's floor/unit and/or counseling patient:
[2024-04-10] MEDS: ATORVASTATIN 40 MG TAB PO ONE (17:02)
[2024-04-10] MEDS: HEPARIN SODIUM/DEXTROSE 25,000 UNITS/500 ML BAG IV SCH (17:08)
[2024-04-10] MEDS: Heparin IV Adult Wt-Based Standard *NO* INITIAL Bolus Protocol IV STA (17:08)
[2024-04-10] MEDS: INSULIN ASPART PER UNIT CHARGE SC SCH (17:24)
[2024-04-10] MEDS: TICAGRELOR 90 MG TAB PO SCH (20:37)
[2024-04-11 03:10] VITALS: RESP 16
[2024-04-11 07:23] LABS: Hematocrit (blood only) 41.6 % (42.0-52.0); Hemoglobin 14.9 g/dl (14.0-18.0); Mean Corpuscular Hemoglobin 32.9 pg (25.0-34.0); Mean Corpuscular Hgb Conc 35.8 g/dL (32.0-36.0); Mean Corpuscular Volume 91.8 fL (80.0-100.0); Mean Platelet Volume 10.8 fL (9.4-12.4); Platelet Count 215 K/uL (130-400); RDW Coefficient of Variation 12.7 % (11.5-14.5); RDW Standard Deviation 42.6 fL (36.4-46.3); Red Blood Count 4.53 M/uL (4.70-6.10); White Blood Count 10.54 K/ul (4.8-10.8)
[2024-04-11 07:34] LABS: Potassium 3.9 mmol/L (3.5-5.1)
[2024-04-11 07:36] LABS: Estimated Average Glucose 157 mg/dl; Hemoglobin A1C 7.1 % (4.5-5.6)
[2024-04-11 07:40] LABS: BUN Creatinine Ratio 15.7 (10-20); Chol HDL Ratio 4.7 (0-5); Creatinine Clr Calc Pharmacy 102.8 ml/min; Phosphorus 3.6 mg/dl (2.5-4.9)
[2024-04-11] MEDS: hydroCHLOROthiazide 25 MG TAB PO SCH (08:07)
[2024-04-11] MEDS: ASPIRIN 81 MG ECTAB PO SCH (08:07)
[2024-04-11] MEDS: ATORVASTATIN 40 MG TAB PO SCH (08:08)
[2024-04-11] MEDS: SERTRALINE HCL 50 MG TABLET PO SCH (08:08)
[2024-04-11] MEDS: lisinopril 40 MG TAB PO SCH (08:08)
[2024-04-11] MEDS ORDERED: ATORVASTATIN 40 MG TAB PO SCH (09:00)
--- NOTE | 2024-04-11 10:20 | Cardiology Progress Note ---
Date of Service April 11, 2024 Assessment & Plan (1) NSTEMI (non-ST elevated myocardial infarction): (2) Status post insertion of drug eluting coronary artery stent: (3) HTN, goal below 130/80: (4) Dyslipidemia, goal LDL below 70: Plan Presentation with chest pain, inferior myocardial infarction, occlusion of the mid RCA Status post April 10, 2024 PCI with a 3.5 x 30 mm Alonso drug-eluting stent Mild nonocclusive coronary artery disease elsewhere Preserved LV systolic function via resting echocardiography on April 10, 2024, EF 55 to 60% Hypertension Dyslipidemia Type 2 diabetes mellitus Recommendations * Aspirin 81 mg/day * Brilinta 90 mg twice per day for the next year * Increase atorvastatin to 80 mg/day * Continue EL inhibition with lisinopril, 40 mg/day * Heart rate precludes addition of beta-sunil therapy * Refer for Cardiac Rehabilitation (prefers [facility]) * Outpatient cardiology follow-up Admission and Anticipated Discharge Date Admission Date: April 10, 2024 Supervising Physician Co-Signing Physician Notes I spent a total of 35 minutes on the date of service in preparation, delivery, and documentation of the care provided to this patient, excluding any time spent in the performance of separately billed services. I have personally performed a history and physical examination on the patient. I have reviewed the advance practitioner's documentation, and I agree with, and take responsibility for the plan of care. Patient doing well today. Denies chest pain, dyspnea, or syncope. No events no jeni on telemetry. Walked multiple times in the hallways with no chest pain. Is adamant about going home today. Will need outpatient cardiology followup. Importance of DAPT discussed with patient. Subjective Patient seen and examined. Chart, medications, telemetry reviewed Presented with nonradiating retrosternal chest discomfort initially attributed to indigestion Initial EKG in PCPs office with subtle ST elevation only in lead III, with mild ST depression in anterior and lateral precordial leads as well as high lateral leads I and aVL Bedside resting echocardiography revealed preserved LV systolic function, EF 55 to 60%, with subtle distal anteroseptal and distal inferoseptal wall motion abnormality. Diagnostic cardiac catheterization revealed occlusion of the mid RCA, undergoing PCI with a 3.5 x 30 mm Baxter drug-eluting stent on April 10, 2024 High-sensitivity troponin: 166.9 -> 215.9-> 350.3-> 8664.4-> 19,127.4-> 13,722.7 Telemetry: Sinus with occasional ventricular ectopy, heart rates in the 60s and 70s Anxious for discharge. Did have some nausea after eating an omelette this morning, emesis x 1. No chest discomfort, shortness of breath, palpitations, orthopnea, PND, peripheral edema Review of Systems Review of Systems: Complete Review of Systems is as stated above, negative, or noncontributory Physical Exam Physical Exam: General: A&Ox3. NAD. HENT: Normocephalic. Atraumatic. Eyes: PER. Conjunctiva pink, sclera clear. Neck: No JVD. Heart: RRR, 60 bpm. No murmur. Lungs: Clear to auscultation. Abdomen: +BS. Soft. Nontender. No organomegaly. Extremities: Right radial artery dressing not removed; surrounding area looks good. No clubbing, cyanosis, or edema. Limited neurological examination is without focal deficits. Pulses: Posterior tibial=2/4. Results & Data Vital Signs (Past 12 Hours) Vital Signs Temp Pulse Pulse Resp BP Pulse Ox O2 Del Method 04/11/24 07:39 36.6 C 62 16 129/85 97 Room Air 04/11/24 07:05 73 04/11/24 03:09 36.4 C L 72 16 140/74 95 Room Air 04/10/24 22:53 36.7 C 53 L 18 114/72 94 Room Air Laboratory Results Cardiac Enzymes 04/10/24 04/10/24 04/10/24 Range/Units 12:00 13:53 15:05 AST 18 (13-39) U/L Troponin I High Sens 166.9 H* 215.9 H* D 350.3 H* D (0-20) pg/ml 04/10/24 04/11/24 04/11/24 Range/Units 20:09 01:04 07:59 AST (13-39) U/L Troponin I High Sens 8664.4 H* D 69078.4 H* D 37411.7 H* D (0-20) pg/ml Coagulation 04/10/24 Range/Units 12:00 PT 10.3 (9.0-12.0) Seconds APTT 24 (21-31) Seconds Lipids 04/11/24 Range/Units 06:43 Triglycerides 271 H (0-150) mg/dl Cholesterol 168 (0-200) mg/dl HDL Cholesterol 36 mg/dl Cholesterol/HDL Ratio 4.7 (0-5) CBC 04/10/24 04/11/24 Range/Units 12:00 06:43 WBC 9.41 10.54 (4.8-10.8) K/ul RBC 4.96 4.53 L (4.70-6.10) M/uL Hgb 16.4 14.9 (14.0-18.0) g/dl Hct 45.3 41.6 L (42.0-52.0) % Plt Count 275 215 (130-400) K/uL Neut # (Auto) 6.72 H (1.40-6.50) K/uL Lymph # (Auto) 1.83 (1.20-3.40) K/uL [place] # (Auto) 0.66 H (0.11-0.59) K/uL Eos # (Auto) 0.08 (0.00-0.50) K/uL Baso # (Auto) 0.08 (0.00-0.20) K/uL Comprehensive Metabolic Panel 04/10/24 04/11/24 Range/Units 12:00 06:43 Sodium 137 138 (136-145) mmol/L Potassium 4.1 3.9 (3.5-5.1) mmol/L Chloride 102 105 (98-107) mmol/L Carbon Dioxide 28 25 (21-32) mmol/L BUN 17 17 (6-23) mg/dl Creatinine 1.06 1.08 (0.6-1.4) mg/dl Glucose 173 H 149 H (70-99(Fasting)) mg/dl Calcium 9.4 9.0 (8.6-10.3) mg/dl AST 18 (13-39) U/L ALT 29 (7-52) U/L Alkaline Phosphatase 78 (34-104) U/L Total Protein 7.3 (6.0-8.3) gm/dl Albumin 4.2 (3.4-5.0) gm/dl Intake and Output 04/10/24 04/11/24 04/11/24 22:59 06:59 14:59 Intake Total 100 / 400 300 / 400 Output Total Balance 100 / 400 300 / 400 -1 Intake: Oral 100 / 400 300 / 400 Output: # Bowel Movements Other: # Unmeasured Voids 04 29 Weight 125.9 kg 125 kg Weight Measurement Method Built in [facility] Built in [facility]
[2024-04-11 11:28] VITALS: BP 118/77; TEMP 98.4; O2SAT 96
--- NOTE | 2024-04-11 13:40 | Discharge Summary ---
Date of Service April 11, 2024 Admission HPI Per Admitting Provider Gino Denise is a 58-year-old male with past medical history significant for DM type II, dyslipidemia, HTN, CKD stage III and anxiety who presented to the ED via referral from his PCP for evaluation of chest pain. History obtained from patient, at bedside and associated chart review. Patient seen at bedside with Dr. Ho. Patient was seen earlier today by his PCP secondary to persistent, dull centralized chest pain since midnight with associated mild nausea. EKG in the outpatient office revealed normal sinus rhythm but possible T wave versions in V3 and V4, therefore he was referred to the ED for further evaluation. EKG in the ED was rather unremarkable however his initial troponin was elevated at 166.9, repeat troponin pending. Patient reports that the pain does intermittently become sharp at times. Pain remains in the central chest region and does not radiate. He does not experience any shortness of breath with this pain however he does endorse some nausea as previously mentioned, no ep isodes of vomiting. When the chest pain started around midnight, it woke him from his sleep. He tried to take some antacids and Pepto-Bismol without any relief of the chest pain. He was loaded with 324mg ASA in the ED. Mentions that his chest pain is unchanged and is currently about a 3 out of 10. Denies any lightheadedness/dizziness. BP has been controlled at home. Mentions his diabetes is well-controlled on his current regimen, BSGs at home run around 130s. Last meal was yesterday at 3PM. Patient reports that he was previously experiencing some intermittent episodes of centralized chest pain last week prior to this acute occurrence. Mentions the pain during those previous episodes felt like it does now. He did not notice any changes with exertion or rest when he had those episodes of chest pain however he did become diaphoretic when the pain would occur - which did not happen today. He has no previous issues with indigestion. Mentions that those episodes of chest pain last week would last anywhere from a few minutes to a couple of hours at most. He did have some nausea with those episodes as well. Patient reports that his father had numerous "heart operations" beginning when he was around 62 years old - he is unsure of the specifics. Patient does use chewing tobacco regularly. Endorses only social alcohol use. No prior history of CO per patient or his . CXR in the ED revealed bilateral reticulonodular opacities most pronounced at the lung bases, likely infectious versus inflammatory. Presenting labs without evidence of leukocytosis and patient is without any respiratory complaints or sick symptoms - denies any cough, recent infections, fevers/chill or body aches. Procalcitonin pending however low suspicion for infectious etiology as this time. Admission Exam Per Admitting Provider General Appearance: Obese, no apparent distress Head: normocephalic, Atraumatic Eyes: normal inspection, EOMI Neck: supple, Trachea midline Respiratory/Chest: Normal breath sounds, CTA, No accessory muscle use Cardiovascular: S1, S2, No murmur Abdomen/GI:Soft, Non tender, Bowel sounds present Extremities/Musculoskeletal:normal inspection, trace edema Neurologic/Psych:AAOX3, grossly no focal neurological deficits Skin: normal color, warm Principal Diagnosis NSTEMI Discharge Exam General Appearance: Obese, no apparent distress Head: normocephalic, Atraumatic Eyes: normal inspection, EOMI Neck: supple, Trachea midline Respiratory/Chest: Normal breath sounds, CTA, No accessory muscle use Cardiovascular: S1, S2, No murmur Abdomen/GI:Soft, Non tender, Bowel sounds present Extremities/Musculoskeletal:normal inspection, trace edema Neurologic/Psych:AAOX3, grossly no focal neurological deficits Skin: normal color, warm Discharge Data Allergies Allergy/AdvReac Type Severity Reaction Status Date / Time No Known Allergies Allergy Unverified 04/10/24 13:36 Consultations 04/10/24 13:41 ED Decision to Admit Stat 04/10/24 14:14 Consult Cardiology Routine 04/10/24 16:37 Consult Cardiac Rehabilitation Routine Procedures Performed Operation Date: 04/10/24 15:30 Actual Procedures p Cineradiography w/Routine Exam - Oswaldo Do MD, PhD s Cath, Coronaries ONLY (no LV) - Oswaldo Do MD, PhD s Drug Eluting Stent SGl Vessel - Oswaldo Do MD, PhD Ordered Studies 04/10/24 15:02 CL Cath Imgs for PACS use only Stat Hospital Course (1) Chest pain: (2) Elevated troponin: Plan Per prior attending w/ Addendum: Gino Denise is a 58-year-old male with past medical history significant for DM type II, dyslipidemia, HTN, CKD stage III and anxiety who presented to the ED via referral from his PCP for evaluation of chest pain. Patient was seen earlier today by his PCP secondary to persistent, dull centralized chest pain since midnight with associated mild nausea. EKG in the outpatient office revealed NSR but possible T wave versions in V3 and V4, therefore he was referred to the ED for further evaluation. Elevated Troponin, Chest Pain Rule-Out: Additional history as per HPI. EKG in the ED personally reviewed and without any overt ST changes. Initial troponin was 166.9 at 12:00 and repeat troponin was 215.9 at 13:53. S/p 324mg ASA in the ED, made NPO. Cardiology consulted; case discussed with Dr. Cifuentes via TT --> Patient was initially going to be placed on IV heparin drip but is now going to the labour market economist with Dr. Do, therefore the IV heparin order was stopped. Echocardiogram results pending. Continue to trend troponin Q6H, EKG daily x 2. Begin ASA 81mg daily tomorrow AM unless otherwise directed by cardiology. SL nitro PRN on board. Appreciate any further cardiology input/recommendations. DM Type II: Hold home agents, SSI regimen while inpatient. BSG checks ACHS. Most recent Hgb A1c was 7.1% approximately 1 month ago as an outpatient. CKD Stage III: Cr stable on admission at 1.06, baseline Cr ~1.1 per chart review. Avoid nephrotoxic meds when able. Monitor renal function closely and renally dose medications when able. Incidental CXR Finding: CXR in the ED revealed bilateral reticulonodular opacities most pronounced at the lung bases, likely infectious versus inflammatory. Presenting labs without evidence of leukocytosis and patient is without any respiratory complaints or sick symptoms - denies any cough, recent infections, fevers/chill or body aches. Procalcitonin pending however low suspicion for infectious etiology as this time, continue to follow. Other Chronic Medical Conditions: * Anxiety - Can continue home Zoloft as prescribed. * HTN - Slightly hypertensive at 143/92 on admission, continue home BP medications for now unless otherwise directed by cardiology. DVT Prophylaxis: SCDs/TEDs for now - patient to labour market economist. Code Status: FULL CODE PCP: Luis Benitez MD Disposition: Admit to PCU/Telemetry following cardiac catheterization. Addendum 04/11/2024: Patient was seen and examined as a follow-up of NSTEMI, patient underwent cardiac cath and stent to mid RCA on 04/10/2024. Mild nonocclusive CAD noted as well. Cardiology also evaluated the patient and upped his atorvastatin, patient has been started on DAPT. patient was advised to maintain compliance with DAPT. patient to follow-up with PCP and cardiology upon discharge. Patient is chest pain-free, has made multiple laps in the hallway with no issues, no further nausea or emesis after lunch. Patient is hemodynamically stable and is anxious to go home. He is being discharged with following instruction at the point of discharge: Follow-up with your primary care physician within a week time and likely you will need labs CBC/CMP/magnesium/phosphorus. Your were evaluated for NSTEMI, you underwent cardiac cath and received stent. You will be discharged on aspirin and Brilinta, maintain medication compliance or else you run the risks of restenosis of the newly placed stent. Your atorvastatin dose has been increased to 80 mg daily. You will need to set up with cardiac rehabilitation, coordinate with your PCP office to set up upon discharge. Follow-up with cardiology in 2 to 4 weeks time upon discharge. Take your medications as prescribed. Please make sure that you are able to get your medications today by calling your pharmacy before you leave the hospital so that your treatment continuity is not broken. Home Health Attestation I certify that this patient is under my care and that I, or a physicians general assistant working with me, had a face to-face encounter that meets the home health [id number] encounter requirements with this patient. The encounter with the patient was in whole, or in part, for the following medical condition, which is the primary reason for home health care (list medical condition): I certify that, based on my findings, the following services are medically necessary home health services: My clinical findings support the need for the above services because: Further, I certify that my clinical findings support that this patient is homebound (i.e. absences from home require considerable and taxing effort and are for medical reasons or spiritism services or infrequently or of short duration when for other reasons) because: Certification for Home Health Services: Based on the above findings, I certify that this patient is confined to the home and needs intermittent usp care, physical therapy and/or speech therapy or continues to need occupational therapy. The patient is under my care, and I have initiated the establishment of the plan of care. This patient will be followed by a physician who will periodically review the plan of care. Total Time Total Time Spent Total Time Spent (In Minutes): 40 Discharge Plan Discharge Items Patient Disposition: Home - Self-Care Reason For Visit: CHEST PAIN R/O Discharge Diagnosis: NSTEMI Activity: Per Instructions section Non-emergency contact: Primary Care Provider Call non-emergency contact if: you have any medication questions and your pain is worsening Follow-up/Referrals: Luis Benitez MD [Primary Care Provider] - Diet: Carb Consistent or DM2 and Heart Healthy Addtl Attending Provider Instructions: Follow-up with your primary care physician within a week time and likely you will need labs CBC/CMP/magnesium/phosphorus. Your were evaluated for NSTEMI, you underwent cardiac cath and received stent. You will be discharged on aspirin and Brilinta, maintain medication compliance or else you run the risks of restenosis of the newly placed stent. Your atorvastatin dose has been increased to 80 mg daily. You will need to set up with cardiac rehabilitation, coordinate with your PCP office to set up upon discharge. Follow-up with cardiology in 2 to 4 weeks time upon discharge. Take your medications as prescribed. Please make sure that you are able to get your medications today by calling your pharmacy before you leave the hospital so that your treatment continuity is not broken. Pending Studies at Discharge: No Stand-Alone Forms: My [facility], Smoking Cessation Medications and DC Order Prescriptions: New Brilinta 90 mg Tablet 90 mg PO BID Qty: 60 0RF atorvastatin 80 mg tablet 80 mg PO DAILY Qty: 30 0RF aspirin 81 mg Tablet,Delayed Release (Dr/Ec) 81 mg PO DAILY Qty: 30 0RF Continued sertraline 100 mg tablet 50 mg PO QAM glimepiride 4 mg tablet 4 mg PO QAM hydrochlorothiazide 25 mg Tablet 25 mg PO QAM lisinopril 40 mg tablet 40 mg PO QAM Jardiance 25 mg tablet 25 mg PO QAM Discontinued atorvastatin 40 mg tablet 40 mg PO QAM Discharge Orders: Discharge Order (Routine); Ordered 04/11/24 Ordered By: Wilbert Hartman/Other Patient Handouts: Managing Type 2 Diabetes Admission Data Admit Date/Time: 04/10/24 15:01 Attending Provider: Wilbert Andres Admit Provider: Edgard Ho Primary Care Provider: Luis Benitez Other Providers: Oswaldo Cifuentes; Edgard Ho
[2024-04-11 13:51] VITALS: PULSE 73
--- OUTSIDE RECORDS SUMMARY | 2024-04-12 06:33 | External Medical Summary | Summary of Care ---
Author Name Unknown Organization [facility] Address [address] [place] [address] Phone [phone] Care Team Providers Care Rn Lactation Consultant Name Role Phone Luis Benitez MD Primary Care Provide r Reason for Visit * Reason Onset Date Comments Re-Check Medication Administration 03/02/2024 Flu an d/or Pneumo Inj Encounter Details Date Type Department Care Team (Late st Contact Info) Description 03/02/2024 7:20 AM EST Office Visit Family Medicine [address] [place] [phone] Luis Benitez MD [address] [place] [address] [place] [id number] Type 2 diabetes mellitus with hemoglobin A1c goal of less than 7.0% (HCC)*; Need for prophylactic vaccination and inoculation against influenza; Screening for depression; HTN, goal below 140/90; Anxiety Allergies No known active allergiesdocumented as of this encounter (statuses as of 03/02/2024) Medications Medication Sig Dispensed Refills Start Date End Date Status OneTouch Verio w/Device KitIndications:DM type 2, goal HbA1c < 7% (HCC) Use to check glucose once daily. E11.9 1 Kit 06/30/2020 Active OneTouch Verio In Vitro Strip (Glucose Blood)Indications :DM type 2, goal HbA1c < 7% (HCC) Use to check glucose once daily. E11.9 100 Strip 11 06/30/2020 Active OneTouch UltraSoft LancetsIndication s:DM type 2, goal HbA1c < 7% (HCC) Use to check glucose once daily. E11.9 100 Each 5 06/30/2020 Active hydroCHLOROthiazi de 25 MG Oral Tablet (Hydrodiuril)Ilda cations:Primary hypertension TAKE 1 TABLET BY MOUTH EVERY DAY IN THE MORNING 90 Tablet 1 01/09/2023 Active Atorvastatin Calcium 40 MG Oral Tablet (Lipitor)Indicati ons:Dyslipidemia, goal LDL below 130 take one pill by mouth at bedtime 90 Tablet 1 02/13/2023 Active Lisinopril 40 MG Oral TabletIndications :Primary hypertension Take 1 Tablet by mouth in the morning. 90 Tablet 1 02/13/2023 Active Empagliflozin 25 MG Oral Tablet (Jardiance)Indica tions:DM type 2, goal HbA1c < 7% (HCC) TAKE 1 TABLET BY MOUTH EVERY DAY 90 Tablet 3 02/15/2024 Active Glimepiride 4 MG Oral TabletIndications :Type 2 diabetes mellitus with hemoglobin A1c goal of less than 7.0% (HCC) Take 1 Tablet by mouth in the morning. 90 Tablet 1 03/02/2024 Active buPROPion HCl ER (XL) 150 MG Oral Tablet Extended Release 24 Hour (Wellbutrin XL)Indications:To bacco use disorder TAKE 1 TABLET BY MOUTH EVERY DAY IN THE MORNING 90 Tablet 1 01/09/2023 4 Discontinued(Med ication List Clean Up) Glimepiride 2 MG Oral Tablet Take 1 Tablet by mouth in the morning. 90 Tablet 1 08/28/2023 4 Discontinued(Ref ill) Sertraline HCl 100 MG Oral Tablet (Zoloft)Indicatio ns:Adjustment disorder, unspecified type TAKE 1 TABLET BY MOUTH EVERY DAY IN THE MORNING 90 Tablet 2 11/29/2023 4 Discontinued(Med ication List Clean Up) metFORMIN HCl ER 500 MG Oral Tablet Extended Release 24 Hour (Glucophage XR)Indications:DM type 2, goal HbA1c < 7% (HCC) TAKE 1 TABLET BY MOUTH EVERY DAY IN THE MORNING 90 Tablet 01/06/2024 4 Discontinued(Med ication List Clean Up) Pioglitazone HCl 30 MG Oral Tablet (Actos)Indication s:DM type 2, goal HbA1c < 7% (HCC) TAKE 1 TABLET BY MOUTH EVERY DAY IN THE MORNING 90 Tablet 01/06/2024 4 Discontinued(Med ication List Clean Up) Benzonatate 100 MG Oral CapsuleIndication s:Viral URI Take 1 Capsule by mouth 3 times a day as needed for Cough. 30 Capsule 1 02/12/2024 4 Discontinued documented as of this encounter (statuses as of 03/02/2024) Active Problems Problem Noted Date Diagnosed Date Hx of nonmelanoma skin cancer 02/14/2023 Overview: Infiltrative BCC (R posterior shoulder 02/18) BMI 37.0-37.9, adult 07/06/2019 DM type 2, goal HbA1c < 7% 04/23/2019 Overview: hgba1c 8.6 Primary hypertension 10/16/2018 Anxiety state 10/10/2018 Dyslipidemia, goal LDL below 100 documented as of this encounter (statuses as of 03/02/2024) Resolved Problems Problem Noted Date Diagnosed Date Resolved Date Type 2 diabetes mellitus wit h stage 2 chronic kidney disease, without long-term current use of insulin 08/08/2022 08/21/2023 Stage 3a chronic kidney disease 08/30/2021 08/08/2022 Overview: EGFR 54 DM type 2 causing CKD stage 3 08/30/2021 08/08/2022 Adjustment disorder 10/11/19 19 documented as of this encounter (statuses as of 03/02/2024) Immunizations Name Administration Dates Next Due Covid-19 Ad26, Single Dose (Blaze/J&J) 08/27/2020 Hepatitis B, 20+ yrs 05/14/2022,12/12/19 22,11/08/2021,2020 Pneumococcal Conjugate Vacci ne, 20-valent ([id number]) 11/08/2021 Season Influenza, Quad, PF, Adjuvanted, 65+ Yrs, IM (FLUAD) 01/28/2020 Seasonal Influenza Virus Vac cine, Unspecified Formulation 02/05/2018,04/17/2016,02/08/2014,2009,02/14/2009,03/12/2008,02/27/2007 Seasonal Influenza, PF, 6 M & above, IM , (FluLaval or Fluzone) 02/13/2023,02/16/2019 Seasonal Influenza, Quadriva lent, No Preserve, Mdck 02/28/2022 Seasonal Influenza, Trivalen t, (IIV3), PF, (Fluzone) 03/02/2024 TDAP (age 10 and older)(Boostrix) 06/19/2018 TDAP, Age 7 and older, IM (Adacel) 10/17/2016, Zoster Vaccine Recombinant (Shingrix) 11/02/2020 ,06/30/2020 documented as of this encounter Social History Tobacco Use Types Packs/Day Years Used Date Smoking Tobacco: Never Smokeless Tobacco: Current Snuff Comments:snuff 1 can per day Alcohol Use Standard Drinks/Week Comments Yes 0 (1 standard drink = 0.6 oz pur e alcohol) on weekends. 4-5 some nights. PHQ-2 Answer Date Recorded PHQ-2 Score -1 03/17/2020 Sex and Gender Information Value Date Recorded Sex Assigned at Not on file Gender Identity Male 03/19/2023 8:04 PM EST Sexual Orientation Not on file Job Start Date Occupation Industry Not on file Not on file Not on file documented as of this encounter Last Filed Vital Signs Vital Sign Reading Time Taken Comments Blood Pressure 112/80 03/02/2024 7:18 AM EST Pulse 88 03/02/2024 7:18 AM EST Temperature 35.7 C (96.3 F) 03/02/2024 7:18 AM ES T Respiratory Rate - - Oxygen Saturation 95% 03/02/2024 7:18 AM EST Inhaled Oxygen Concentration - - Weight 127.4 kg (280 lb 12.8 oz) 03/02/2024 7:18 AM EST Height - - Body Mass Index 40.29 02/12/2024 11:22 AM EDT documented in this encounter Progress Notes * Luis Benitez MD - 03/02/2024 7:29 AM EST Subjective: HPI: Gino Denise is a 58 year old male with hx of DMII, HLD, HTN, Anxiety seen for HTN: - HCTZ 25mg daily, Lisinopril 40mg daily DMII: - on Jardiance 25mg daily, Amaryl 2mg daily - pt did not tolerate metformin ----- had diarrhea with it - per pt he is not taking it Actos - A1 is improving Pt stopped taking zoloft - overall pt is doing well Patient Active Problem List Diagnosis BMI 37.0-37.9, adult Dyslipidemia, goal LDL below 100 Anxiety state Primary hypertension DM type 2, goal HbA1c < 7% ([facility]) Hx of nonmelanoma skin cancer Current Outpatient Medications Medication Sig Dispense Refill OneTouch Verio w/Device Kit Use to check glucose once daily. E11.9 1 Kit 0 OneTouch Verio In Vitro Strip (Glucose Blood) Use to check glucose once daily. E11.9 100 Strip 11 OneTouch UltraSoft Lancets Use to check glucose once daily. E11.9 100 Each 5 hydroCHLOROthiazide 25 MG Oral Tablet (Hydrodiuril) TAKE 1 TABLET BY MOUTH EVERY DAY IN THE [id number] Tablet 1 Atorvastatin Calcium 40 MG Oral Tablet (Lipitor) take one pill by mouth at bedtime 90 Tablet 1 Lisinopril 40 MG Oral Tablet Take 1 Tablet by mouth in the morning. 90 Tablet 1 Empagliflozin 25 MG Oral Tablet (Jardiance) TAKE 1 TABLET BY MOUTH EVERY DAY 90 Tablet 3 Glimepiride 4 MG Oral Tablet Take 1 Tablet by mouth in the morning. 90 Tablet 1 No current facility-administered medications for this visit. Past Medical History: Diagnosis Date Adjustment disorder Anxiety state BMI 39.0-39.9,adult CKD (chronic kidney disease), stage III (HCC) 08/30/2021 EGFR 54 COVID-19 03/02/2020 DM type 2 causing CKD stage 3 (HCC) 08/30/2021 DM type 2, goal HbA1c < 7% (HCC) 04/23/2019 hgba1c 8.6 Dyslipidemia, goal LDL below 100 Encounter for hepatitis C screening test for low risk patient 12/15/2020 negative Primary hypertension Past Surgical History: Procedure Laterality Date COLOGUARD 08/22/2022 positive COLONOSCOPY, DIAGNOSTIC (RECTUM) 11/19/2022 hemorrhoids/recall 3 years/COLONOSCOPY FLEXIBLE PROXIMAL DIAGNOSTIC performed by Josué Webb MD at ENDOSCOPY GE CT ABD/PELVIS W IV AND W ORAL CONTRAST 08/15/2021 fatty liver, complex in midportion left kidney, needs 6 month followup LUMBAR DISC ARTHROPLAST,REVS,ADDL INTERSPCE 2006 L5-S1 REMOVAL OF TONSILS, AGE 12+ 1989 Review of patient's allergies indicates: No Known Allergies Family History Problem Relation Name Age of Onset Breast Cancer Mother Heart disease Father OR (50s), valve replacement, etc. Diabetes Daughter Type 1 Social History Tobacco Use Smoking status: Never Smokeless tobacco: Current Types: Snuff Tobacco comments: snuff 1 can per day Substance Use Topics Alcohol use: Yes Comment: on weekends. 4-5 some nights. Vaping/E-Cigarette Use Vaping/E-Cigarette Substances Vaping/E-Cigarette Devices ROS: -Per HPI OBJECTIVE: BP 112/80 | Pulse 88 | Temp 35.7 C (96.3 F) | Wt 127.4 kg (280 lb 12.8 oz) | SpO2 95% | BMI 40.29 kg/m | BSA 2.51 m PHYSICAL EXAM: Vitals are reviewed General:. NAD, well developed HEENT:. Normal Conjunctiva, EOMI Cardiac:. Normal S1, S2, no murmur Lungs:. CTA, no wheezing or crackles Abd:. soft, ND, NT MSK:. Normal gait Psych:. AAOx3, normal affect ASSESSMENT/PLAN: Reviewed the recent labs - advised to increase water intake - increased the amaryl dose BP wnl Pt's anxiety is well controlled w/o med at this time per pt --- will contact if he like to start another med. Might consider celexa Type 2 diabetes mellitus with hemoglobin A1c goal of less than 7.0% ([facility]) (Primary) - Glimepiride 4 MG Oral Tablet; Take 1 Tablet by mouth in the morning. Need for prophylactic vaccination and inoculation against influenza - INFLUENZA VAC, TRIVALENT, (IIV3), PF, 0.5 ML (FLUZONE) Screening for depression - DEPRESSION SCREENING PERFORMED HTN, goal below 140/90 Anxiety Follow Up: Return in about 6 months (around 08/30/2024). [place] [phone] * Diane Ugalde CMA - 03/02/2024 7:22 AM EST PRE - ADMINISTRATION DOCUMENTATION Are you experiencing any cold symptoms or fever? No Have you had Guillain[place] Syndrome (an illness that causes paralysis) within the last 6 weeks? No Have you had the flu shot in the past? YES Have you ever had a reaction to the flu shot? No Diane Ugalde CMA, 03/02/2024 7:22 AM Immunization Administration Documentation Time Out Procedure Performed: Yes Patient Identified (Ask Name/Date of ): Yes Does the patient have a fever greater than 101 degrees today? No Patient allergic to latex? No VFC Stock: No Immunization(s) verified: Yes, Immunization Name: Flu, VIS Sheet(s) given: Yes Verified Side and Site: Yes Verified Shot(s) with Parent(s)/Patient: Yes documented in this encounter Nursing Notes * Diane Ugalde CMA - 03/02/2024 7:13 AM EST He is here for a 6 mo recheck. He was getting calf cramps but it seems to have resolve. Stopped metformin-never felt good on Sertraline-decided to stop it, his says he is angrier but he doesn't notice any changes documented in this encounter Plan of Treatment Upcoming Encounters Date Type Department Care Team (Late st Contact Info) Description 11/02/2024 2:00 PM EDT Office Visit Family Medicine [address] [place] [phone] Luis Benitez MD [address] [place] [address] [place] [address] Scheduled Procedures Name Priority Associated Diagnoses Date/Ti me COLONOSCOPY FLEXIBLE PROXIMA L DIAGNOSTIC Recall History of colonic polyps Health Maintenance Due Date Last Done Comments HIV Screening 12/07/1982 Fecal Occult Blood Test 12/07/2012 Sigmoidoscopy 12/07/2012 COVID-19 Vaccine ( season) 2023 08/27/2020 Diabetic Eye Exam 07/01/2024 07/02/2023, , 05/13/2019 HbA1c 08/12/2024 02/12/2024, 07/29, 02/13/2023, Additional history exists Albumin/Creatinine Ratio 08/20/2024 024, 02/13/2023, 03/12/2022, Additional history exists B-12 08/20/2024 08/21/2023, 07/28, 05/17/2021, Additional history exists Diabetic Foot Exam 08/20/2024 08/21/2023, 0 11/08/2021, 06/30/2020, Additional history exists GFR 02/11/2025 02/12/2024, 07/29, 08/08/2022, Additional history exists Depression Screening 03/02/2025 03/02/2024 Cologuard 08/31/2025 08/31/2022, 07/29, 08/22/2022 Colonoscopy 11/19/2025 11/19/2022, 11/19/2022 Colorectal Cancer Screening 11/19/2025 DTap/Tdap Vaccines (4 - Td or Tdap) 06/19/2028 06/19/2018, 10/17/2016, 06/25/2012 Lipid Panel 02/11/2029 02/12/2024, 07/29, 03/12/2022, Additional history exists Zoster Vaccines Completed 11/02/2020, 06/30/2020 Pneumococcal Vaccine: Pediatrics (0 to 5 Years) and At-Risk Patients (6 to 64 Years) Completed 11/08/2021 Hepatitis B Vaccine Completed 05/14/2022, 12/11/2021, 11/08/2021, Additional history exists Influenza Vaccine (FLU shot) Completed 07/2023, 02/13/2023, 02/28/2022, Additional history exists HPV (Gardasil) Vaccine Aged Out No lo nger eligible based on patient's age to complete this topic MENINGOCOCCAL (MENACTRA/MENVEO) Aged Out No longer eligible based on patient's age to complete this topic documented as of this encounter Medical Devices Not on filedocumented as of this encounter Visit Diagnoses Diagnosis Type 2 diabetes mellitus with hemoglobin A1c goal of less than 7.0% (HCC)- Primary Need for prophylactic vaccination and inoculation against influenza Screening for depression HTN, goal below 140/90 Unspecified essential hypertension Anxiety Anxiety state, unspecified documented in this encounter Care Teams Rn Lactation Consultant Relationship Specialty Start Date End Date Luis Benitez MD [address] [place] [address] [place] [address] PCP - General Family Medicine 03/02/24 documented as of this encounter"
--- OUTSIDE RECORDS SUMMARY | 2024-04-12 06:33 | External Medical Summary | Summary of Care ---
Author Name Unknown Organization [facility] Address [address] [place] [address] Phone [phone] Care Team Providers Care Legal Editor Name Role Phone Unavailable Primary Care Provider Unavailabl e Reason for Visit * Reason Comments Outpatient Testing Encounter Details Date Type Department Care Team (Late st Contact Info) Description 02/12/2024 11:40 AM EDT Laboratory Laboratory [address] [place] [phone] [place], Lab [address] [place] [address] [employer] Other*[id number]; DM type 2, goal HbA1c < 7% (HCC); Dyslipidemia, goal LDL below 100 Allergies No known active allergiesdocumented as of this encounter (statuses as of 02/12/2024) Medications Medication Sig Dispensed Refills Start Date End Date Status OneTouch Verio w/Device KitIndications:DM type 2, goal HbA1c < 7% (HCC) Use to check glucose once daily. E11.9 1 Kit 06/30/2020 Active OneTouch Verio In Vitro Strip (Glucose Blood)Indications:DM type 2, goal HbA1c < 7% (HCC) Use to check glucose once daily. E11.9 100 Strip 11 06/30/2020 Active OneTouch UltraSoft LancetsIndications:DM type 2, goal HbA1c < 7% (HCC) Use to check glucose once daily. E11.9 100 Each 5 06/30/2020 Active buPROPion HCl ER (XL) 150 MG Oral Tablet Extended Release 24 Hour (Wellbutrin XL)Indications:Tobacc o use disorder TAKE 1 TABLET BY MOUTH EVERY DAY IN THE MORNING 90 Tablet 1 01/09/2023 Active hydroCHLOROthiazide 25 MG Oral Tablet (Hydrodiuril)Indicati ons:Primary hypertension TAKE 1 TABLET BY MOUTH EVERY DAY IN THE MORNING 90 Tablet 1 01/09/2023 Active Atorvastatin Calcium 40 MG Oral Tablet (Lipitor)Indications: Dyslipidemia, goal LDL below 130 take one pill by mouth at bedtime 90 Tablet 1 02/13/2023 Active Empagliflozin 25 MG Oral Tablet (Jardiance)Indication s:DM type 2, goal HbA1c < 7% (HCC) One daily 90 Tablet 1 02/13/2023 Active Lisinopril 40 MG Oral TabletIndications:Tali markie hypertension Take 1 Tablet by mouth in the morning. 90 Tablet 1 02/13/2023 Active Glimepiride 2 MG Oral Tablet Take 1 Tablet by mouth in the morning. 90 Tablet 1 08/28/2023 Active Sertraline HCl 100 MG Oral Tablet (Zoloft)Indications:A djustment disorder, unspecified type TAKE 1 TABLET BY MOUTH EVERY DAY IN THE MORNING 90 Tablet 2 11/29/2023 Active metFORMIN HCl ER 500 MG Oral Tablet Extended Release 24 Hour (Glucophage XR)Indications:DM type 2, goal HbA1c < 7% (HCC) TAKE 1 TABLET BY MOUTH EVERY DAY IN THE MORNING 90 Tablet 01/06/2024 Active Pioglitazone HCl 30 MG Oral Tablet (Actos)Indications:DM type 2, goal HbA1c < 7% (HCC) TAKE 1 TABLET BY MOUTH EVERY DAY IN THE MORNING 90 Tablet 01/06/2024 Active Benzonatate 100 MG Oral CapsuleIndications:Vi ral URI Take 1 Capsule by mouth 3 times a day as needed for Cough. 30 Capsule 1 02/12/2024 Active documented as of this encounter (statuses as of 02/12/2024) Active Problems Problem Noted Date Diagnosed Date Hx of nonmelanoma skin cancer 02/14/2023 Overview: Infiltrative BCC (R posterior shoulder 02/18) BMI 37.0-37.9, adult 07/06/2019 DM type 2, goal HbA1c < 7% 04/23/2019 Overview: hgba1c 8.6 Primary hypertension 10/16/2018 Anxiety state 10/10/2018 Dyslipidemia, goal LDL below 100 documented as of this encounter (statuses as of 02/12/2024) Resolved Problems Problem Noted Date Diagnosed Date Resolved Date Type 2 diabetes mellitus wit h stage 2 chronic kidney disease, without long-term current use of insulin 08/08/2022 08/21/2023 Stage 3a chronic kidney disease 08/30/2021 08/08/2022 Overview: EGFR 54 DM type 2 causing CKD stage 3 08/30/2021 08/08/2022 Adjustment disorder 10/11/19 19 documented as of this encounter (statuses as of 02/12/2024) Immunizations Name Administration Dates Next Due Covid-19 Ad26, Single Dose (Blaze/J&J) 08/27/2020 Hepatitis B, 20+ yrs 05/14/2022,12/12/19 22,11/08/2021,2020 Pneumococcal Conjugate Vacci ne, 20-valent ([id number]) 11/08/2021 Season Influenza, Quad, PF, Adjuvanted, 65+ Yrs, IM (FLUAD) 01/28/2020 Seasonal Influenza Virus Vac cine, Unspecified Formulation 02/05/2018,04/17/2016,02/08/2014,2009,02/14/2009,03/12/2008,02/27/2007 Seasonal Influenza, PF, 6 M & above, IM , (FluLaval or Fluzone) 02/13/2023,02/16/2019 Seasonal Influenza, Quadriva lent, No Preserve, Mdck 02/28/2022 TDAP (age 10 and older)(Boostrix) 06/19/2018 TDAP, [...] on file documented as of this encounter Plan of Treatment Upcoming Encounters Date Type Department Care Team (Late st Contact Info) Description 03/02/2024 7:20 AM EST Office Visit Family Medicine [address] [place] [phone] Luis Benitez MD [address] [place] [address] [place] [phone] Pending Results Name Type Priority Associated Diagnoses Date /Time MYCODE SUBSEQUENT ADULT Lab Routine [employer] Other*[id number] 02/12/2024 11:39 AM EDT HEMOGLOBIN A1C Lab Routine DM type 2, goal HbA1c < 7% ([facility]) 02/12/2024 11:39 AM EDT LIPID PANEL WITH DIRECT LDL IF TG IS HIGH Lab Routine Dyslipidemia, goal LDL below 100 02/12/2024 11:39 AM EDT COMPREHENSIVE METABOLIC PANEL Lab Routine DM type 2, goal HbA1c < 7% ([facility]) 02/12/2024 11:39 AM EDT MYCODE SST1 Lab Routine [employer] Other*[id number] 02/12/2024 11:39 AM EDT MYCODE SST2 Lab Routine [employer] Other*[id number] 02/12/2024 11:39 AM EDT Scheduled Procedures Name Priority Associated Diagnoses Date/Ti me COLONOSCOPY FLEXIBLE PROXIMA L DIAGNOSTIC Recall History of colonic polyps Health Maintenance Due Date Last Done Comments HIV Screening 12/07/1982 Fecal Occult Blood Test 12/07/2012 Sigmoidoscopy 12/07/2012 Depression Screening 03/17/2021 03/17/2020 Diabetic Eye Exam 11/08/2022 11/08/2021, 05/13/2019 COVID-19 Vaccine ( season) 2023 08/27/2020 Influenza Vaccine (FLU shot) (#1) 2023 02/13/2023, 02/28/2022, 01/28/2020, Additional history exists HbA1c 02/20/2024 08/21/2023, 01/27, 08/08/2022, Additional history exists Albumin/Creatinine Ratio 08/20/2024 024, 02/13/2023, 03/12/2022, Additional history exists B-12 08/20/2024 08/21/2023, 07/28, 05/17/2021, Additional history exists Diabetic Foot Exam 08/20/2024 08/21/2023, 0 11/08/2021, 06/30/2020, Additional history exists GFR 08/20/2024 08/21/2023, 07/28, 03/12/2022, Additional history exists Cologuard 08/31/2025 08/31/2022, 07/29, 08/22/2022 Colonoscopy 11/19/2025 11/19/2022, 11/19/2022 Colorectal Cancer Screening 11/19/2025 DTap/Tdap Vaccines (4 - Td or Tdap) 06/19/2028 06/19/2018, 10/17/2016, 06/25/2012 Lipid Panel 08/20/2028 08/21/2023, 02/27, 12/16/2020, Additional history exists Zoster Vaccines Completed 11/02/2020, 06/30/2020 Pneumococcal Vaccine: Pediatrics (0 to 5 Years) and At-Risk Patients (6 to 64 Years) Completed 11/08/2021 Hepatitis B Vaccine Completed 05/14/2022, 12/11/2021, 11/08/2021, Additional history exists HPV (Gardasil) Vaccine Aged Out No lo nger eligible based on patient's age to complete this topic MENINGOCOCCAL (MENACTRA/MENVEO) Aged Out No longer eligible based on patient's age to complete this topic documented as of this encounter Medical Devices Not on filedocumented as of this encounter Visit Diagnoses Diagnosis [employer] Other*[id number] DM type 2, goal HbA1c < 7% (HCC) Dyslipidemia, goal LDL below 100 Other and unspecified hyperlipidemia documented in this encounter
--- OUTSIDE RECORDS SUMMARY | 2024-04-12 06:33 | External Medical Summary | Summary of Care ---
Author Name Unknown Organization [facility] Address [address] [place] [address] Phone [phone] Care Team Providers Care Shank Taper Name Role Phone Luis Benitez MD Primary Care Provide r Reason for Visit * Reason Comments Acute Encounter Details Date Type Department Care Team (Late st Contact Info) Description 04/10/2024 10:40 AM EST Office Visit Family Medicine [address] [place] [phone] Luis Benitez MD [address] [place] [address] [place] [address] Chest pain, unspecified type* Allergies No known active allergiesdocumented as of this encounter (statuses as of 04/10/2024) Medications OneTouch Verio w/Device KitIndications:DM type 2, goal HbA1c < 7% (HCC) Use to check glucose once daily. E11.9 1 Kit 1 Active OneTouch Verio In Vitro Strip (Glucose Blood)Indications :DM type 2, goal HbA1c < 7% (HCC) Use to check glucose once daily. E11.9 100 Strip 11 1 Active OneTouch UltraSoft LancetsIndication s:DM type 2, goal HbA1c < 7% (HCC) Use to check glucose once daily. E11.9 100 Each 5 1 Active hydroCHLOROthiazi de 25 MG Oral Tablet (Hydrodiuril)Ilda cations:Primary hypertension TAKE 1 TABLET BY MOUTH EVERY DAY IN THE MORNING 90 Tablet 1 3 Active Atorvastatin Calcium 40 MG Oral Tablet (Lipitor)Indicati ons:Dyslipidemia, goal LDL below 130 take one pill by mouth at bedtime 90 Tablet 1 3 Active Lisinopril 40 MG Oral TabletIndications :Primary hypertension Take 1 Tablet by mouth in the morning. 90 Tablet 1 3 Active Empagliflozin 25 MG Oral Tablet (Jardiance)Indica tions:DM type 2, goal HbA1c < 7% (HCC) TAKE 1 TABLET BY MOUTH EVERY DAY 90 Tablet 3 4 Active Glimepiride 4 MG Oral TabletIndications :Type 2 diabetes mellitus with hemoglobin A1c goal of less than 7.0% (HCC) Take 1 Tablet by mouth in the morning. 90 Tablet 1 4 Active Sertraline HCl 100 MG Oral Tablet (Zoloft) Take 0.5 Tablets by mouth in the morning. Active documented as of this encounter (statuses as of 04/10/2024) Active Problems Problem Noted Date Diagnosed Date Hx of nonmelanoma skin cancer 02/14/2023 Overview (02/14/2023): Infiltrative BCC (R posterior shoulder 02/18) BMI 37.0-37.9, adult 07/06/2019 DM type 2, goal HbA1c < 7% 04/23/2019 Overview (04/24/2019): hgba1c 8.6 Primary hypertension 10/16/2018 Anxiety state 10/10/2018 Dyslipidemia, goal LDL below 100 documented as of this encounter (statuses as of 04/10/2024) Resolved Problems Problem Noted Date Diagnosed Date Resolved Date Type 2 diabetes mellitus wit h stage 2 chronic kidney disease, without long-term current use of insulin 08/08/2022 08/21/2023 Stage 3a chronic kidney disease 08/30/2021 08/08/2022 Overview (03/12/2022): EGFR 54 DM type 2 causing CKD stage 3 08/30/2021 08/08/2022 Adjustment disorder 10/11/19 19 documented as of this encounter (statuses as of 04/10/2024) Immunizations Name Administration Dates Next Due Covid-19 Ad26, Single Dose (Blaze/J&J) 08/27/2020 Hepatitis B, 20+ yrs 05/14/2022,12/12/19 22,11/08/2021,2020 Pneumococcal Conjugate Vacci ne, 20-valent ([id number]) 11/08/2021 Season Influenza, Quad, PF, Adjuvanted, 65+ [...] 4-5 some nights. PHQ-2 Answer Date Recorded PHQ Adult Total Score 0 03/02/2024 Sex and Gender Information Value Date Recorded Sex Assigned at Not on file Legal Sex Male 10:04 AM EST Gender Identity Male 03/19/2023 8:04 PM EST Sexual Orientation Not on file documented as of this encounter Last Filed Vital Signs Vital Sign Reading Time Taken Comments Blood Pressure 136/90 04/10/2024 10:45 AM EST Pulse 90 04/10/2024 10:45 AM EST Temperature 36 C (96.8 F) 04/10/2024 10: 45 AM EST Respiratory Rate - - Oxygen Saturation 96% 04/10/2024 10: 45 AM EST Inhaled Oxygen Concentration - - Weight 127.2 kg (280 lb 6.4 oz) 024 10:45 AM EST Height - - Body Mass Index 40.23 02/12/2024 11:22 AM EDT documented in this encounter Progress Notes * Luis Benitez MD - 04/10/2024 10:57 AM EST Subjective: HPI: Gino Denise is a 58 year old male with hx of DMII, HLD, HTN, Anxiety seen for On and off mid abd and mid chest pain - persistent since mid night - mild nausea - denied any fever - no change with walking - dull ache --- denied any burning sensation Patient Active Problem List Diagnosis BMI 37.0-37.9, adult Dyslipidemia, goal LDL below 100 Anxiety state Primary hypertension DM type 2, goal HbA1c < 7% ([facility]) Hx of nonmelanoma skin cancer Current Outpatient [...] TABLET BY MOUTH EVERY DAY IN THE [id number] Tablet 1 Atorvastatin Calcium 40 MG Oral [...] mouth in the morning. 90 Tablet 1 Sertraline HCl 100 MG Oral Tablet (Zoloft) Take 0.5 Tablets by mouth in the morning. No current facility-administered medications for this visit. Past Medical History: Diagnosis Date Adjustment disorder Anxiety state BMI 39.0-39.9,adult CKD (chronic kidney disease), stage III (HCC) 08/30/2021 EGFR 54 COVID-19 03/02/2020 DM type 2 causing CKD stage 3 (HCC) 08/30/2021 DM type 2, goal HbA1c < 7% ([facility]) 04/23/2019 hgba1c 8.6 Dyslipidemia, goal LDL below 100 Encounter for hepatitis C screening test for low risk patient 12/15/2020 negative Primary hypertension Past Surgical History: Procedure Laterality Date COLOGUARD 08/22/2022 positive COLONOSCOPY, DIAGNOSTIC (RECTUM) 11/19/2022 hemorrhoids/recall 3 years/COLONOSCOPY FLEXIBLE PROXIMAL DIAGNOSTIC performed by Josué Webb MD at ENDOSCOPY [facility] CT ABD/PELVIS W IV AND W ORAL CONTRAST 08/15/2021 fatty liver, complex in midportion left kidney, needs 6 month followup LUMBAR DISC ARTHROPLAST,REVS,ADDL INTERSPCE 2006 L5-S1 REMOVAL OF TONSILS, AGE 12+ 1989 Review of patient's allergies indicates: No Known Allergies Family History Problem Relation Name Age of Onset Breast Cancer Mother Heart disease Father [place] (50s), valve replacement, etc. Diabetes Daughter Type 1 Social History Tobacco Use Smoking status: Never Smokeless tobacco: Current Types: Snuff Tobacco comments: snuff 1 can per day Substance Use Topics Alcohol use: Yes Comment: on weekends. 4-5 some nights. Vaping/E-Cigarette Use Vaping/E-Cigarette Substances Vaping/E-Cigarette Devices ROS: -Per HPI OBJECTIVE: BP 136/90 | Pulse 90 | Temp 96.8 F (36 C) | Wt 280 lb 6.4 oz (127.2 kg) | SpO2 96% | BMI 40.23 kg/m | BSA 2.51 m PHYSICAL EXAM: Vitals are reviewed General:. NAD, well developed HEENT:. Normal Conjunctiva, EOMI Abd:. soft, ND, NT MSK:. Normal gait Psych:. AAOx3, normal affect ASSESSMENT/PLAN: EKG: NSR but possible T wave inversion on V3 and V4 - pt does not have typical symptoms of GERD or Peptic ulcer - consider his age, chronic conditions sent the pt to the ER for acute eval - recommended ambulance but pt wanted to go by personal vehicle - will inform the pt abt pt Chest pain, unspecified type (Primary) I spent a total of 30-39 minutes (exact time 33 mins) on the date of service in preparation, delivery, and documentation of the care provided to Gino Denise excluding any time spent in the performance of separately billed services or time spent by another provider/QHP. Luis Benitez MD Family medicine, [address] [address] documented in this encounter Nursing Notes * Diane Ugalde CMA - 04/10/2024 10:43 AM EST A week ago he started getting heartburn. He is still getting bad heartburn today. No other symptoms. Taking a new diabetic medicine the pharmacy finally filled? No name. Says you prescribed it. documented in this encounter Plan of Treatment Upcoming Encounters Date Type Department Care Team (Late st Contact Info) Description 11/02/2024 2:00 PM EDT Office Visit Family Medicine [address] [phone] Luis Benitez MD [address] [place] [address] [place] [address] Scheduled Procedures Name Priority [...] as of this encounter Visit Diagnoses Diagnosis Chest pain, unspecified type- Primary documented in this encounter Care Teams Shank Taper Relationship Specialty Start Date End Date Luis Benitez MD [address] [place] [address] [place] [id number] PCP - General Family Medicine 03/02/24 documented as of this encounter"
--- OUTSIDE RECORDS SUMMARY | 2024-04-12 06:33 | External Medical Summary | Summary of Care ---
Author Name Unknown Organization [facility] Address [address] [place] [facility] [place] [address] Phone [phone] Care Team Providers Care Gizzard Peeler Name Role Phone Unavailable Primary Care Provider Unavailabl e Reason for Visit * Reason Comments Acute Encounter Details Date Type Department Care Team (Late st Contact Info) Description 02/12/2024 11:20 AM EDT Office Visit Family Medicine [address] [place] [phone] Rossi Jacobs PA-C [address] [place] [address] [place] [id number] Viral URI*; DM type 2, goal HbA1c < 7% [...] 100 Strip 11 06/30/2020 Active OneTouch UltraSoft LancetsIndications:D M type 2, goal HbA1c < 7% (HCC) Use to check glucose once daily. E11.9 100 Each 5 06/30/2020 Active buPROPion HCl ER (XL) 150 MG Oral Tablet Extended Release 24 Hour (Wellbutrin XL)Indications:Tobac co use disorder TAKE 1 TABLET BY MOUTH EVERY DAY IN THE MORNING 90 Tablet 1 01/09/2023 Active hydroCHLOROthiazide 25 MG Oral Tablet (Hydrodiuril)Indicat ions:Primary hypertension TAKE 1 TABLET BY MOUTH EVERY DAY IN THE MORNING 90 Tablet 1 01/09/2023 Active Atorvastatin Calcium 40 MG Oral Tablet (Lipitor)Indications :Dyslipidemia, goal LDL below 130 take one pill by mouth at bedtime 90 Tablet 1 02/13/2023 Active Empagliflozin 25 MG Oral Tablet (Jardiance)Indicatio ns:DM type 2, goal HbA1c < 7% (HCC) One daily 90 Tablet 1 02/13/2023 Active Lisinopril 40 MG Oral TabletIndications:Pr imary hypertension Take 1 Tablet by mouth in the morning. 90 Tablet 1 02/13/2023 Active Glimepiride 2 MG Oral Tablet Take 1 Tablet by mouth in the morning. 90 Tablet 1 08/28/2023 Active Sertraline HCl 100 MG Oral Tablet (Zoloft)Indications: Adjustment disorder, unspecified type TAKE 1 TABLET BY MOUTH EVERY DAY IN THE MORNING 90 Tablet 2 11/29/2023 Active metFORMIN HCl ER 500 MG Oral Tablet Extended Release 24 Hour (Glucophage XR)Indications:DM type 2, goal HbA1c < 7% (HCC) TAKE 1 TABLET BY MOUTH EVERY DAY IN THE MORNING 90 Tablet 01/06/2024 Active Pioglitazone HCl 30 MG Oral Tablet (Actos)Indications:D M type 2, goal HbA1c < 7% (HCC) TAKE 1 TABLET BY MOUTH EVERY DAY IN THE MORNING 90 Tablet 01/06/2024 Active Benzonatate 100 MG Oral CapsuleIndications:V iral URI Take 1 Capsule by mouth 3 times a day as needed for Cough. 30 Capsule 1 02/12/2024 Active Amoxicillin-Pot Clavulanate 875-125 MG Oral Tablet (Augmentin)Indicatio ns:Viral URI Take 1 Tablet by mouth in the morning and 1 Tablet before bedtime. Do all this for 10 days. 20 Tablet 02/12/2024 02/22/2024 Active documented as of this encounter (statuses [...] 05/14/2022,12/12/19 22,11/08/2021,2020 Pneumococcal Conjugate Vacci ne, 20-valent ([id number]) 11/08/2021 Season Influenza, Quad, PF, Adjuvanted, 65+ [...] Sign Reading Time Taken Comments Blood Pressure 122/74 02/12/2024 11:22 AM EDT Pulse 90 02/12/2024 11:22 AM EDT Temperature 36.7 C (98 F) 02/12/2024 11:22 AM EDT Respiratory Rate - - Oxygen Saturation 95% 02/12/2024 11:22 AM EDT Inhaled Oxygen Concentration - - Weight 124.7 kg (275 lb) 02/12/2024 11:22 AM EDT Height 177.8 cm (5' 10") 02/12/2024 11:22 AM EDT Body Mass Index 39.46 02/12/2024 11:22 AM EDT documented in this encounter Progress Notes * Rossi Jacobs PA-C - 02/12/2024 11:24 AM EDT Nursing Notes: Ana Rosa Chong LPN 02/12/24 1123 Sign at exiting of workspace "Im sick" Cold/flu symptoms Yesterday was bad Wants labs for appt on 03/02 Getting bad cramping pains in calves bilaterally Pt here today with cough, chest congestion, fever, chills, nasal/head congestion for the past 3 days. Pt denies nausea, vomiting, diarrhea. Pt states that his grandkids are sick. Review of patient's allergies indicates: No Known Allergies Current Outpatient Medications Medication Sig Dispense Refill OneTouch Verio w/Device Kit Use to check glucose once daily. E11.9 1 Kit 0 OneTouch Verio In Vitro Strip (Glucose Blood) Use to check glucose once daily. E11.9 100 Strip 11 OneTouch UltraSoft Lancets Use to check glucose once daily. E11.9 100 Each 5 buPROPion HCl ER (XL) 150 MG Oral Tablet Extended Release 24 Hour (Wellbutrin XL) TAKE 1 TABLET BY MOUTH EVERY DAY IN THE MORNING 90 Tablet 1 hydroCHLOROthiazide 25 MG Oral Tablet (Hydrodiuril) TAKE 1 TABLET BY MOUTH EVERY DAY IN THE [id number] Tablet 1 Atorvastatin Calcium 40 MG Oral Tablet (Lipitor) take one pill by mouth at bedtime 90 Tablet 1 Empagliflozin 25 MG Oral Tablet (Jardiance) One daily 90 Tablet 1 Lisinopril 40 MG Oral Tablet Take 1 Tablet by mouth in the morning. 90 Tablet 1 Glimepiride 2 MG Oral Tablet Take 1 Tablet by mouth in the morning. 90 Tablet 1 Sertraline HCl 100 MG Oral Tablet (Zoloft) TAKE 1 TABLET BY MOUTH EVERY DAY IN THE MORNING 90 Tablet 2 metFORMIN HCl ER 500 MG Oral Tablet Extended Release 24 Hour (Glucophage XR) TAKE 1 TABLET BY MOUTHEVERY DAY IN THE MORNING 90 Tablet 0 Pioglitazone HCl 30 MG Oral Tablet (Actos) TAKE 1 TABLET BY MOUTH EVERY DAY IN THE MORNING 90 Tablet 0 No current facility-administered medications for this visit. Past Medical History: Diagnosis Date Adjustment disorder Anxiety state BMI 39.0-39.9,adult CKD (chronic kidney disease), stage III ([facility]) 08/30/2021 EGFR 54 COVID-19 03/02/2020 DM type 2 causing CKD stage 3 ([facility]) 08/30/2021 DM type 2, goal HbA1c < 7% ([facility]) 04/23/2019 hgba1c 8.6 Dyslipidemia, goal LDL below 100 Encounter for hepatitis C screening test for low risk patient 12/15/2020 negative Primary hypertension Social History Socioeconomic History Marital status: Spouse name: Not on file Number of children: Not on file Years of education: Not on file Highest education level: Not on file Occupational History Not on file Tobacco Use Smoking status: Never Smokeless tobacco: Current Types: Snuff Tobacco comments: snuff 1 can per day Substance and Sexual Activity Alcohol use: Yes Comment: on weekends. 4-5 some nights. Drug use: No Sexual activity: Not on file Other Topics Concern Not on file Social History Narrative Works [employer] for 1985 to 2006 Social Determinants of Health Financial Resource Strain: Not on file Food Insecurity: Not on file Transportation Needs: Not on file Social Connections: Unknown (02/12/2024) Social Connections How often do you feel lonely or isolated from those around you? (Adult - for ages 18 years and over): Not on file Housing Stability: Not on file O:Blood pressure 122/74, pulse 90, temperature 36.7 C (98 F), temperature source Tympanic, height 1.778 m (5' 10"), weight 124.7 kg (275 lb), SpO2 95%. GENERAL: alert, healthy, and no distress NECK: supple, no adenopathy EYES: conjunctiva are pink and non-injected, sclera clear EARS: External ears normal, Canals clear, TM's Normal NOSE: no mucosal erythema, no mucosal edema, no purulent discharge OROPHARYNX: no exudate, no erythema, lips, buccal mucosa, and tongue normal, and mucous membranes are moist HEART: regular rate & rhythm, no murmur, and no gallops LUNGS: chest symmetric with normal AP diameter, no chest deformities noted, no chest wall tenderness, lungs clear to auscultation A:Viral URI (Primary) - XR CHEST 2 VIEWS - INFLUENZA A/B RSV SARS-COV2,PCR; Future; Expected date: 02/12/2024 - Benzonatate 100 MG Oral Capsule; Take 1 Capsule by mouth 3 times a day as needed for Cough. - INFLUENZA A/B RSV SARS-COV2,PCR DM type 2, goal HbA1c < 7% ([facility]) - HEMOGLOBIN A1C; Future; Expected date: 02/12/2024 - COMPREHENSIVE METABOLIC PANEL; Future; Expected date: 02/12/2024 Dyslipidemia, goal LDL below 100 - LIPID PANEL WITH DIRECT LDL IF TG IS HIGH; Future; Expected date: 02/12/2024 [employer] WORK [employer] swab. Will xray chest. Start tessalon. Any questions/problems, please call. If anything changes,worsens, develops new sx, please call [facility]. Follow Up: Return if symptoms worsen or fail to improve. Rossi Jacobs PA-C documented in this encounter Nursing Notes * Ana Rosa Chong LPN - 02/12/2024 11:22 AM EDT "Im sick" Cold/flu symptoms Yesterday was bad Wants labs for appt on 03/02 Getting bad cramping pains in calves bilaterally documented in this encounter Plan of Treatment Upcoming Encounters Date Type Department Care Team (Late st Contact Info) Description 02/12/2024 1:00 PM EDT Imaging Radiology [address] [place] [address] Arrived 03/02/2024 7:20 AM EST Office Visit Family Medicine [address] [place] [phone] Luis Benitez MD [address] [place] [address] [place] [address] Pending Results Name Type Priority Associated Diagnoses Date/Time HEMOGLOBIN A1C Lab Routine DM type 2, goal HbA1c < 7% (HCC) 02/12/2024 11:39 AM EDT LIPID PANEL WITH DIRECT LDL IF TG IS HIGH Lab Routine Dyslipidemia, goal LDL below 100 02/12/2024 11:39 AM EDT COMPREHENSIVE METABOLIC PANEL Lab Routine DM type 2, goal HbA1c < 7% (HCC) 02/12/2024 11:39 AM EDT XR CHEST 2 VIEWS Medical Imaging Routine Viral URI 02/12/2024 11:47 AM EDT INFLUENZA A/B RSV SARS-COV2,PCR Lab Routine Viral URI 02/12/2024 11:29 AM EDT Scheduled Orders Name Type Priority Associated Diagnoses Orde r Schedule HEMOGLOBIN A1C Lab Routine DM type 2, goal HbA1c < 7% (HCC) Expected: 02/12/2024 (Approximate), Expires: 02/11/2025 LIPID PANEL WITH DIRECT LDL IF TG IS HIGH Lab Routine Dyslipidemia, goal LDL below 100 Expected: 02/12/2024, Expires: 02/11/2025 COMPREHENSIVE METABOLIC PANEL Lab Routine DM type 2, goal HbA1c < 7% (HCC) Expected: 02/12/2024 (Approximate), Expires: 02/11/2025 INFLUENZA A/B RSV SARS-COV2,PCR Lab Routine Viral URI Expected: 02/12/2024 (Approximate), Expires: 02/11/2025 Scheduled Procedures Name Priority Associated Diagnoses Date/Ti [...] as of this encounter Visit Diagnoses Diagnosis Viral URI- Primary Acute upper respiratory infections of unspecified site DM type 2, goal HbA1c < 7% (HCC) Dyslipidemia, goal LDL below 100 Other and unspecified hyperlipidemia documented in this encounter
--- OUTSIDE RECORDS SUMMARY | 2024-04-12 06:33 | External Medical Summary ---
Author Name Unknown Address Unknown Organization [id number]:[facility] [place] - [address] [place] [address] Laboratory Report Ordering Provider Test Date Status LANDON POLLOCK 02/12/2024 11:39:48 Final Observation Date Value Abnormality Reference (Units ) Status MYCODE SPECIMEN-SST 02/12/2024 11:39:48 Freezing of extracted DNA, whole blood and/or serum. Final Performing Location LABORATORY [facility] - [address] [place] [address]
--- OUTSIDE RECORDS SUMMARY | 2024-04-12 06:33 | External Medical Summary | Summary of Care ---
Author Name Unknown Organization [facility] Address [address] [place] [address] Phone [phone] Care Team Providers Care Joinery Factory Worker Name Role Phone Unavailable Primary Care Provider Unavailabl e Reason for Visit * Reason Comments eRx-Medication Refill Encounter Details Date Type Department Care Team (Late st Contact Info) Description 02/14/2024 Refill Family Medicine [address] [place] [phone] Luis Bneitez MD [address] [place] [address] [place] [phone] DM type 2, goal HbA1c < 7% (HCC) Allergies No known active allergiesdocumented as of this encounter (statuses as of 02/15/2024) Medications Medication Sig Dispensed Refills Start Date End Date Status OneTouch Verio w/Device KitIndications:DM type 2, goal HbA1c < 7% (HCC) Use to check glucose once daily. E11.9 1 Kit 06/30/2020 Active OneTouch Verio In Vitro Strip (Glucose Blood)Indications: DM type 2, goal HbA1c < 7% (HCC) Use to check glucose once daily. E11.9 100 Strip 11 06/30/2020 Active OneTouch UltraSoft LancetsIndications :DM type 2, goal HbA1c < 7% (HCC) Use to check glucose once daily. E11.9 100 Each 5 06/30/2020 Active buPROPion HCl ER (XL) 150 MG Oral Tablet Extended Release 24 Hour (Wellbutrin XL)Indications:Tob acco use disorder TAKE 1 TABLET BY MOUTH EVERY DAY IN THE MORNING 90 Tablet 1 01/09/2023 Active hydroCHLOROthiazid e 25 MG Oral Tablet (Hydrodiuril)Indic ations:Primary hypertension TAKE 1 TABLET BY MOUTH EVERY DAY IN THE MORNING 90 Tablet 1 01/09/2023 Active Atorvastatin Calcium 40 MG Oral Tablet (Lipitor)Indicatio ns:Dyslipidemia, goal LDL below 130 take one pill by mouth at bedtime 90 Tablet 1 02/13/2023 Active Lisinopril 40 MG Oral TabletIndications: Primary hypertension Take 1 Tablet by mouth in the morning. 90 Tablet 1 02/13/2023 Active Glimepiride 2 MG Oral Tablet Take 1 Tablet by mouth in the morning. 90 Tablet 1 08/28/2023 Active Sertraline HCl 100 MG Oral Tablet (Zoloft)Indication s:Adjustment disorder, unspecified type TAKE 1 TABLET BY MOUTH EVERY DAY IN THE MORNING 90 Tablet 2 11/29/2023 Active metFORMIN HCl ER 500 MG Oral Tablet Extended Release 24 Hour (Glucophage XR)Indications:DM type 2, goal HbA1c < 7% (HCC) TAKE 1 TABLET BY MOUTH EVERY DAY IN THE MORNING 90 Tablet 01/06/2024 Active Pioglitazone HCl 30 MG Oral Tablet (Actos)Indications :DM type 2, goal HbA1c < 7% (HCC) TAKE 1 TABLET BY MOUTH EVERY DAY IN THE MORNING 90 Tablet 01/06/2024 Active Benzonatate 100 MG Oral CapsuleIndications :Viral URI Take 1 Capsule by mouth 3 times a day as needed for Cough. 30 Capsule 1 02/12/2024 Active Amoxicillin-Pot Clavulanate 875-125 MG Oral Tablet (Augmentin)Indicat ions:Viral URI Take 1 Tablet by mouth in the morning and 1 Tablet before bedtime. Do all this for 10 days. 20 Tablet 02/12/2024 4 Active Empagliflozin 25 MG Oral Tablet (Jardiance)Indicat ions:DM type 2, goal HbA1c < 7% (HCC) TAKE 1 TABLET BY MOUTH EVERY DAY 90 Tablet 3 02/15/2024 Active Empagliflozin 25 MG Oral Tablet (Jardiance)Indicat ions:DM type 2, goal HbA1c < 7% (HCC) One daily 90 Tablet 1 02/13/2023 4 Discontinued documented as of this encounter (statuses as of 02/15/2024) Active Problems Problem Noted Date Diagnosed Date Hx of nonmelanoma skin cancer 02/14/2023 Overview: Infiltrative BCC (R posterior shoulder 02/18) BMI 37.0-37.9, adult 07/06/2019 DM type 2, goal HbA1c < 7% 04/23/2019 Overview: hgba1c 8.6 Primary hypertension 10/16/2018 Anxiety state 10/10/2018 Dyslipidemia, goal LDL below 100 documented as of this encounter (statuses as of 02/15/2024) Resolved Problems Problem Noted Date Diagnosed Date Resolved Date Type 2 diabetes mellitus wit h stage 2 chronic kidney disease, without long-term current use of insulin 08/08/2022 08/21/2023 Stage 3a chronic kidney disease 08/30/2021 08/08/2022 Overview: EGFR 54 DM type 2 causing CKD stage 3 08/30/2021 08/08/2022 Adjustment disorder 10/11/19 19 documented as of this encounter (statuses as of 02/15/2024) Immunizations Name Administration Dates Next Due Covid-19 Ad26, Single Dose (Blaze/J&J) 08/27/2020 Hepatitis B, 20+ yrs 05/14/2022,12/12/19 22,11/08/2021,2020 Pneumococcal Conjugate Vacci ne, 20-valent ([id number]) 11/08/2021 Season Influenza, Quad, PF, Adjuvanted, 65+ [...] on file documented as of this encounter Miscellaneous Notes * Telephone Encounter - [facility] - 02/15/2024 8:04 AM EDTSigned Prescriptions: Disp Refills Empagliflozin 25 MG Oral Tablet (Jardiance)90 Tab*3 Sig: TAKE 1TABLET BY MOUTH EVERY DAYAuthorizing Provider: Gali BENITEZ User: MARKEL DOZIER Electronically signed by [facility] at 02/15/2024 8:04 AM EDT documented in this encounter Plan of Treatment Upcoming Encounters Date Type Department Care Team (Late st Contact Info) Description 03/02/2024 7:20 AM EST Office Visit Family Medicine [address] [place] [phone] Luis Benitez MD [address] [place] [address] [place] [phone] Scheduled Procedures Name Priority Associated Diagnoses Date/Ti [...] 02/13/2023, 02/28/2022, 01/28/2020, Additional history exists HbA1c 08/12/2024 02/12/2024, 07/29, 02/13/2023, Additional history exists Albumin/Creatinine Ratio 08/20/2024 024, 02/13/2023, 03/12/2022, Additional history exists B-12 08/20/2024 08/21/2023, 07/28, 05/17/2021, Additional history exists Diabetic Foot Exam 08/20/2024 08/21/2023, 0 11/08/2021, 06/30/2020, Additional history exists GFR 02/11/2025 02/12/2024, 2 07/2023, 08/08/2022, Additional history exists Cologuard 08/31/2025 08/31/2022, 07/29, [...] as of this encounter Visit Diagnoses Diagnosis DM type 2, goal HbA1c < 7% (HCC) documented in this encounter
--- OUTSIDE RECORDS SUMMARY | 2024-04-12 06:33 | External Medical Summary | Summary of Care ---
Author Name Unknown Organization [facility] Address [address] [place] [address] Phone [phone] Care Team Providers Care Office Machine Service Supervisor Name Role Phone Unavailable Primary Care Provider Unavailabl e Encounter Details Date Type Department Care Team (Late st Contact Info) Description 02/24/2024 Orders Only Outcomes Research Department [address], [place] [phone] Michelle Freire CHRA [facility] Other*[id number] Allergies No known active allergiesdocumented as of this encounter (statuses as of 02/24/2024) Medications Medication Sig Dispensed Refills Start Date [...] for Cough. 30 Capsule 1 02/12/2024 Active Empagliflozin 25 MG Oral Tablet (Jardiance)Indication s:DM type 2, goal HbA1c < 7% (HCC) TAKE 1 TABLET BY MOUTH EVERY DAY 90 Tablet 3 02/15/2024 Active documented as of this encounter (statuses as of 02/24/2024) Active Problems Problem Noted Date Diagnosed Date Hx of nonmelanoma skin cancer 02/14/2023 Overview: Infiltrative BCC (R posterior shoulder 02/18) BMI 37.0-37.9, adult 07/06/2019 DM type 2, goal HbA1c < 7% 04/23/2019 Overview: hgba1c 8.6 Primary hypertension 10/16/2018 Anxiety state 10/10/2018 Dyslipidemia, goal LDL below 100 documented as of this encounter (statuses as of 02/24/2024) Resolved Problems Problem Noted Date Diagnosed Date Resolved Date Type 2 diabetes mellitus wit h stage 2 chronic kidney disease, without long-term current use of insulin 08/08/2022 08/21/2023 Stage 3a chronic kidney disease 08/30/2021 08/08/2022 Overview: EGFR 54 DM type 2 causing CKD stage 3 08/30/2021 08/08/2022 Adjustment disorder 10/11/19 19 documented as of this encounter (statuses as of 02/24/2024) Immunizations Name Administration Dates Next Due Covid-19 Ad26, Single Dose (Blaze/J&J) 08/27/2020 Hepatitis B, 20+ yrs 05/14/2022,12/12/19,11/08/2021,2020 Pneumococcal Conjugate Vacci ne, 20-valent ([id number]) 11/08/2021 Season Influenza, Quad, PF, Adjuvanted, 65+ [...] 7:20 AM EST Office Visit Family Medicine [address] [place] [phone] Luis Benitez MD [address] [place] [address] [place] [phone] Scheduled Orders Name Type Priority Associated Diagnoses Orde r Schedule MYCODE SUBSEQUENT ADULT Lab Routine [facility] Other*[id number] Every 6 Months for 2 Occurrences starting 02/24/2024 until 03/15/2025 Scheduled Procedures Name Priority Associated Diagnoses Date/Ti [...] 03/12/2022, Additional history exists B-12 08/20/2024 08/21/2023, 0405/2022, 05/17/2021, Additional history exists Diabetic Foot Exam 08/20/2024 08/21/2023, 0 11/08/2021, 06/30/2020, Additional history exists GFR 02/11/2025 02/12/2024, 07/29, 08/08/2022, Additional history exists Cologuard 08/31/2025 08/31/2022, [...] this encounter Visit Diagnoses Diagnosis [facility] Other*[id number] documented in this encounter
--- OUTSIDE RECORDS SUMMARY | 2024-04-12 06:33 | External Medical Summary ---
Author Name Unknown Address Unknown Organization K01:[facility] [place] [address] [place] [address] Laboratory Report Ordering Provider Test Date Status KELVIN SANFODR 02/12/2024 11:39:48 Final Observation Date Value Abnormality Reference (Units ) Status LDL, (direct) 02/12/2024 11:39:48 94 <=129 (mg/dL) Final LDL Cholesterol Reference Ra nges (mg/dL):
<70 Target level for high risk ASCVD patient
<100 Optimal for general population
100-129 Near optimal for general population
130-159 Borderline high
160-189 High
>=190 Very high Performing Location [facility] - [address] [place] [address]
--- OUTSIDE RECORDS SUMMARY | 2024-04-12 06:34 | External Medical Summary ---
Author Name Unknown Address Unknown Organization [id number]:[facility] [place] [address] [place] [address] Laboratory Report Ordering Provider Test Date Status LANDON POLLOCK 02/12/2024 11:39:48 Final Observation Date Value Abnormality Reference (Units ) Status MYCODE SPECIMEN-SST 02/12/2024 11:39:48 Freezing of extracted DNA, whole blood and/or serum. Final Performing Location [facility] - [address] [place] [address]
--- OUTSIDE RECORDS SUMMARY | 2024-04-12 06:34 | External Medical Summary | Summary of Care ---
Author Name Unknown Organization [facility] Address [address] [facility] [place] [address] Phone [phone] Care Team Providers Care Deck Supervisor Name Role Phone Unavailable Primary Care Provider Unavailabl e Reason for Visit * Reason Comments eRx-Medication Refill Encounter Details Date Type Department Care Team (Late st Contact Info) Description 01/04/2024 Refill Family Medicine [address] [place] [phone] Luis Benitez MD [address] [place] [address] [place] [address] DM type 2, goal HbA1c < 7% (HCC) Allergies No known active allergiesdocumented as of this encounter (statuses as of 01/06/2024) Medications Medication Sig Dispensed Refills Start Date [...] 02/13/2023 Active Empagliflozin 25 MG Oral Tablet (Jardiance)Indicat [...] IN THE MORNING 90 Tablet 01/06/2024 Active metFORMIN HCl ER 500 MG Oral Tablet Extended Release 24 Hour (Glucophage XR)Indications:DM type 2, goal HbA1c < 7% (HCC) Take 1 Tablet by mouth in the morning. 90 Tablet 1 02/13/2023 01/06/2024 Discontinued Pioglitazone HCl 30 MG Oral Tablet (Actos)Indications :DM type 2, goal HbA1c < 7% (HCC) Take 1 Tablet by mouth in the morning. 90 Tablet 1 02/13/2023 01/06/2024 Discontinued documented as of this encounter (statuses as of 01/06/2024) Active Problems Problem Noted Date Diagnosed Date Hx of nonmelanoma skin cancer 02/14/2023 Overview: Infiltrative BCC (R posterior shoulder 02/18) BMI 37.0-37.9, adult 07/06/2019 DM type 2, goal HbA1c < 7% 04/23/2019 Overview: hgba1c 8.6 Primary hypertension 10/16/2018 Anxiety state 10/10/2018 Dyslipidemia, goal LDL below 100 documented as of this encounter (statuses as of 01/06/2024) Resolved Problems Problem Noted Date Diagnosed Date Resolved Date Type 2 diabetes mellitus wit h stage 2 chronic kidney disease, without long-term current use of insulin 08/08/2022 08/21/2023 Stage 3a chronic kidney disease 08/30/2021 08/08/2022 Overview: EGFR 54 DM type 2 causing CKD stage 3 08/30/2021 08/08/2022 Adjustment disorder 10/11/19 19 documented as of this encounter (statuses as of 01/06/2024) Immunizations Name Administration Dates Next Due Covid-19 Ad26, Single Dose (Blaze/J&J) 08/27/2020 Hepatitis B, 20+ yrs 05/14/2022,12/12/19 22,11/08/2021,2020 Pneumococcal Conjugate Vacci ne, 20-valent ([id number]) 11/08/2021 Season Influenza, Quad, PF, Adjuvanted, 65+ [...] encounter Miscellaneous Notes * Telephone Encounter - Bridget Gupta RPh - 01/06/2024 12:34 PM EDT Signed Prescriptions: Disp Refills metFORMIN HCl ER 500 MG Oral Tablet Extend*90 Tab*0 Sig: TAKE 1 TABLET BY MOUTH EVERY DAY IN THE MORNING Authorizing Provider: LUIS BENITEZ Ordering User: BRIDGET GUPTA Pioglitazone HCl 30 MG Oral Tablet (Actos) 90 Tab*0 Sig: TAKE 1 TABLET BY MOUTH EVERY DAY IN THE MORNING Authorizing Provider: LUIS BENITEZ Ordering User: BRIDGET GUPTA * Telephone Encounter - Bridget Gupta RPh - 01/06/2024 12:34 PM EDT Amaryl added in July. 1 refill approved until follow up appt when pt is due for repeat a1c documented in this encounter Plan of Treatment Upcoming Encounters Date Type Department Care Team (Late st Contact Info) Description 03/02/2024 7:20 AM EST Office Visit Family [address] [phone] Luis Benitez MD [address] [place] [address] [place] [address] Scheduled Procedures Name Priority [...]
--- OUTSIDE RECORDS SUMMARY | 2024-04-12 06:34 | External Medical Summary | Summary of Care ---
Author Name Unknown Organization [facility] Address [address] [facility] [place] [address] Phone [phone] Care Team Providers Care Sieve Repairer Name Role Phone Unavailable Primary Care Provider Unavailabl e Reason for Visit * Reason Comments eRx-Medication Refill Encounter Details Date Type Department Care Team (Late st Contact Info) Description 11/29/2023 Refill Family Medicine [address] [place] [phone] Luis Benitez MD [address] [place] [address] [place] [phone] Adjustment disorder, unspecified type Allergies No known active allergiesdocumented as of this encounter (statuses as of 11/29/2023) Medications Medication Sig Dispensed Refills Start Date [...] the morning. 90 Tablet 1 02/13/2023 Active metFORMIN HCl ER 500 MG Oral Tablet Extended Release 24 Hour (Glucophage XR)Indications:DM type 2, goal HbA1c < 7% (HCC) Take 1 Tablet by mouth in the morning. 90 Tablet 1 02/13/2023 Active Pioglitazone HCl 30 MG Oral Tablet [...] THE MORNING 90 Tablet 2 11/29/2023 Active Sertraline HCl 100 MG Oral Tablet (Zoloft)Indication s:Adjustment disorder, unspecified type TAKE 1 TABLET BY MOUTH EVERY DAY IN THE MORNING 90 Tablet 07/17/2023 11/29/2023 Discontinued documented as of this encounter (statuses as of 11/29/2023) Active Problems Problem Noted Date Diagnosed Date Hx of nonmelanoma skin cancer 02/14/2023 Overview: Infiltrative BCC (R posterior shoulder 02/18) BMI 37.0-37.9, adult 07/06/2019 DM type 2, goal HbA1c < 7% 04/23/2019 Overview: hgba1c 8.6 Primary hypertension 10/16/2018 Anxiety state 10/10/2018 Dyslipidemia, goal LDL below 100 documented as of this encounter (statuses as of 11/29/2023) Resolved Problems Problem Noted Date Diagnosed Date Resolved Date Type 2 diabetes mellitus wit h stage 2 chronic kidney disease, without long-term current use of insulin 08/08/2022 08/21/2023 Stage 3a chronic kidney disease 08/30/2021 08/08/2022 Overview: EGFR 54 DM type 2 causing CKD stage 3 08/30/2021 08/08/2022 Adjustment disorder 10/11/19 19 documented as of this encounter (statuses as of 11/29/2023) Immunizations Name Administration Dates Next Due Covid-19 Ad26, Single Dose (Enstratius/J&J) 08/27/2020 Hepatitis B, 20+ yrs 05/14/2022,12/12/19 22,11/08/2021,2020 Pneumococcal Conjugate Vacci ne, 20-valent ([id number]) 11/08/2021 Season Influenza, Quad, PF, Adjuvanted, 65+ [...] encounter Miscellaneous Notes * Telephone Encounter - Lio Turcios RPh - 11/29/2023 11:25 AM EDTSigned Prescriptions: Disp Refills Sertraline HCl 100 MG Oral Tablet (Zoloft) 90 Tab*2 Sig: TAKE 1 TABLET BY MOUTH EVERY DAY IN THE MORNINGAuthorizing Provider: LUIS BENITEZOrderbritt User:LIO TURCIOS documented in this encounter Plan of Treatment Upcoming Encounters Date Type Department Care Team (Late st Contact Info) Description 03/02/2024 7:20 AM EST Office Visit Family Medicine [address] [phone] Luis Benitez MD [address] [place] [address] [place] [address] Scheduled Procedures Name Priority Associated Diagnoses Date/Ti me COLONOSCOPY FLEXIBLE PROXIMA L DIAGNOSTIC Recall History of colonic polyps Health Maintenance Due Date Last Done Comments HIV Screening 12/07/1982 Fecal Occult Blood Test 12/07/2012 Sigmoidoscopy 12/07/2012 Depression Screening 03/17/2021 03/17/2020 Diabetic Eye Exam 11/08/2022 11/08/2021, 05/13/2019 COVID-19 Vaccine ( season) 2022 08/27/2020 Influenza Vaccine (FLU shot) (#1) 2023 [...] 11/19/2025 11/19/2022, 11/19/2022 Colorectal Cancer Screening 11/19/2025 DTaP,Tdap,and Td Vaccines (4 - Td or Tdap) 06/19/2028 06/19/2018, 10/17/2016, 06/25/2012 Lipid Panel 08/20/2028 08/21/2023, 02/27, 12/16/2020, Additional history exists *BASELINE EKG FOR HTN Completed 10/10/2018 Zoster Vaccines Completed 11/02/2020, 06/30/2020 Pneumococcal Vaccine: [...] as of this encounter Visit Diagnoses Diagnosis Adjustment disorder, unspecified type documented in this encounter
--- OUTSIDE RECORDS SUMMARY | 2024-04-12 06:34 | External Medical Summary ---
Author Name Unknown Address Unknown Organization K01:[facility] - [address] [facility] [place] [address] Laboratory Report Ordering Provider Test Date Status KELVIN SANFORD 02/12/2024 11:39:48 Final Observation Date Value Abnormality Reference (Units ) Status BUN 02/12/2024 11:39:48 20 6-20 (mg/dL) Final Creatinine 02/12/2024 11:39:48 1.4 Above high normal 0.6-1.2 (mg/dL) Final Glomerular filtration rate/1.73 sq M.predicted [Volume Rate/Area] in Serum, Plasma or Blood by Creatinine-based formula (CKD-EPI) 02/12/2024 11:39:48 60 >=60 (mL/min) Final eGFR is calculated based on the CKD-EPI 2020 equation. Sodium 02/12/2024 11:39:48 138 135-146 (m mol/L) Final Potassium 02/12/2024 11:39:48 3.9 3.5-5.1 (m mol/L) Final Cl 02/12/2024 11:39:48 98 98-107 (mm ol/L) Final CO2 02/12/2024 11:39:48 25 22-32 (mmo l/L) Final Anion gap 02/12/2024 11:39:48 15 7-15 (mmol /L) Final Glucose 02/12/2024 11:39:48 268 Above high normal 70 -120 (mg/dL) Final Albumin 02/12/2024 11:39:48 4.1 3.8-5.0 (g /dL) Final AST (Aspartate aminotransferase) 02/12/2024 11:39:48 24 10-50 (U/L) Fin al Alk Phos 02/12/2024 11:39:48 90 35-130 (U/ L) Final Bilirubin, Total 02/12/2024 11:39:48 0.8 <=1 .2 (mg/dL) Final Calcium 02/12/2024 11:39:48 9.5 8.4-10.2 ( mg/dL) Final Protein 02/12/2024 11:39:48 6.8 6.0-8.3 (g /dL) Final ALT (Alanine aminotransferase) 02/12/2024 11:39:48 35 10-50 (U/L) Giovany [place] Performing Location [facility] - [facility][note 3] [address] [facility] [address]
--- OUTSIDE RECORDS SUMMARY | 2024-04-12 06:34 | External Medical Summary | Summary of Care ---
Author Name Unknown Organization [facility] Address [address] [facility] [place] [address] Phone [phone] Care Team Providers Care Front Line Leader Name Role Phone Unavailable Primary Care Provider Unavailabl e Reason for Visit * Reason Comments eRx-Medication Refill Encounter Details Date Type Department Care Team (Late st Contact Info) Description 12/02/2023 Refill Family Medicine [address] [place] [phone] Luis Benitez MD [address] [place] [address] [place] [address] Allergies No known active allergiesdocumented as of this encounter (statuses as of 12/03/2023) Medications Medication Sig Dispensed Refills Start Date [...] Oral Tablet Extended Release 24 Hour (Wellbutrin XL)Indications:Tobacco use disorder TAKE 1 TABLET BY MOUTH EVERY DAY IN THE MORNING 90 Tablet 1 01/09/2023 Active hydroCHLOROthiazide 25 MG Oral Tablet (Hydrodiuril)Indicatio ns:Primary hypertension TAKE 1 TABLET BY MOUTH EVERY DAY IN THE MORNING 90 Tablet 1 01/09/2023 Active Atorvastatin Calcium 40 MG Oral Tablet (Lipitor)Indications:D yslipidemia, goal LDL below 130 take one pill by mouth at bedtime 90 Tablet 1 02/13/2023 Active Empagliflozin 25 MG Oral Tablet (Jardiance)Indications :DM type 2, goal HbA1c < 7% (HCC) One daily 90 Tablet 1 02/13/2023 Active Lisinopril 40 MG Oral TabletIndications:Prim jazlyn hypertension Take 1 Tablet by mouth in [...] Active Sertraline HCl 100 MG Oral Tablet (Zoloft)Indications:Ad justment disorder, unspecified type TAKE 1 TABLET BY MOUTH EVERY DAY IN THE MORNING 90 Tablet 2 11/29/2023 Active documented as of this encounter (statuses as of 12/03/2023) Active Problems Problem Noted Date Diagnosed Date Hx of nonmelanoma skin cancer 02/14/2023 Overview: Infiltrative BCC (R posterior shoulder 02/18) BMI 37.0-37.9, adult 07/06/2019 DM type 2, goal HbA1c < 7% 04/23/2019 Overview: hgba1c 8.6 Primary hypertension 10/16/2018 Anxiety state 10/10/2018 Dyslipidemia, goal LDL below 100 documented as of this encounter (statuses as of 12/03/2023) Resolved Problems Problem Noted Date Diagnosed Date Resolved Date Type 2 diabetes mellitus wit h stage 2 chronic kidney disease, without long-term current use of insulin 08/08/2022 08/21/2023 Stage 3a chronic kidney disease 08/30/2021 08/08/2022 Overview: EGFR 54 DM type 2 causing CKD stage 3 08/30/2021 08/08/2022 Adjustment disorder 10/11/19 19 documented as of this encounter (statuses as of 12/03/2023) Immunizations Name Administration Dates Next Due Covid-19 Ad26, Single Dose (Blaze/J&J) 08/27/2020 Hepatitis B, 20+ yrs 05/14/2022,12/12/19,11/08/2021,2020 Pneumococcal Conjugate Vacci ne, 20-valent ([id number]) 11/08/2021 Season Influenza, Quad, PF, Adjuvanted, 65+ [...] encounter Miscellaneous Notes * Telephone Encounter - Raad Estrella RPh - 12/03/2023 1:43 PM EDT Refused Prescriptions: Disp Refills Glimepiride 2 MG Oral Tablet (Amaryl) 90 Tab*1 Sig: TAKE 1 TABLET BY MOUTH EVERY DAY IN THE MORNINGRefused By: RAAD ESTRELLA for Refusal: Too soon---- documented in this encounter Plan of Treatment Upcoming Encounters Date Type Department Care Team (Late st Contact Info) Description 03/02/2024 7:20 AM EST Office Visit Family Medicine [address] [place] [phone] Luis Benitez MD [address] [place] [address] [place] [address] Scheduled Procedures Name Priority [...] 01/27, 08/08/2022, Additional history exists Albumin/Creatinine Ratio 08/20/20242 024, 02/13/2023, 03/12/2022, Additional history exists B-12 [...]
--- OUTSIDE RECORDS SUMMARY | 2024-04-12 06:34 | External Medical Summary ---
Author Name Unknown Address Unknown Organization K01:[facility] [place] - [address] [place] [address] Laboratory Report Ordering Provider Test Date Status KELVIN SANFORD 02/12/2024 11:39:48 Final Observation Date Value Abnormality Reference (Units ) Status Triglyceride 02/12/2024 11:39:48 248 Above high normal <=174 (mg/dL) Final Triglyceride Reference Range s (mg/dL):
<150 Acceptable
150-174 Borderline high
175-499 High
>=500 Very high Cholesterol 02/12/2024 11:39:48 172 <200 (mg /dL) Final Total Cholesterol Reference Ranges (mg/dL):
<200 Desirable
200-239 Borderline high
>=240 High HDL 02/12/2024 11:39:48 45 >39 (mg/dL ) Final HDL Cholesterol Reference Ra nges (mg/dL):
>=60 High (Desirable)
<50 Low (Undesirable) For Females
<40 Low (Undesirable) For Males NON-HDL CHOLESTEROL 02/12/2024 11:39:48 127 <=159 (mg/dL) Final Non-HDL Cholesterol Referenc e Range (mg/dL):
<100 Target level for high risk ASCVD patient
<130 Optimal for general population
130-159 Near optimal for general population
160-189 Borderline High
190-219 High
>=220 Very High Performing Location [facility] - [address] [place] [address]
--- OUTSIDE RECORDS SUMMARY | 2024-04-12 06:34 | External Medical Summary ---
Author Name Unknown Address Unknown Organization [id number]:LABORATORY [facility] [place] - [address] [facility] [address] [facility] [id number] Laboratory Report Ordering Provider Test Date Status KELVIN SANFORD 02/12/2024 11:29:25 Final Observation Date Value Abnormality Reference (Units ) Status SARS Coronavirus 2 02/12/2024 11:29:25 Negative N egative Final No SARS-CoV2 Coronavirus RNA detected by PCR (amplified probe).
This automated test was developed and its performance characteristics determined by [facility]. It has not been cleared or approved by the U.S. Food and Drug Administration (FDA). FDA does not require this test to go thru premarket FDA review. This test is used for clinical purposes. It should not be regarded as investigational or for research. This laboratory is certified under the Clinical Laboratory Improvement Amendments (CLIA) as qualified to perform high complexity clinical laboratory testing.

This test is a nucleic acid amplification test (NAAT), a reverse transcriptase polymerase chain reaction (RT-PCR) test, or a Centers for Disease Control-acceptable equivalent. The test is performed in a high complexity Clinical Laboratory Improvement Amendments-(CLIA) certified laboratory. The test is acceptable for SARS-CoV-2 diagnosis, surveillance, and travel within the [place] and to most countries. Please check with local testing authorities about requirements before travel.

The validation of bronchial specimens, tracheal aspirates, and sputum for this assay was developed and performance characteristics determined by [facility]. The validation of alternate specimen types has not been cleared or approved by the U.S. Food and Drug Administration (FDA). It has been determined that such clearance or approval is not necessary. Influenza virus A RNA [Prese nce] in Specimen by [facility]ERLEY with probe detection 02/12/2024 11:29:25 Negative Negative Final No Influenza A RNA detected by PCR (amplified probe) Influenza virus B RNA [Prese nce] in Specimen by [facility]ERLEY with probe detection 02/12/2024 11:29:25 Negative Negative Final No Influenza B RNA detected by PCR (amplified probe) Respiratory syncytial virus RNA [Identifier] in Specimen by SHERLEY with probe detection 02/12/2024 11:29:25 Negative Negative Final No Respiratory Syncytial Vir us RNA detected by PCR (amplified probe) Performing Location LABORATORY [address] [place]. [facility] [id number]
--- NOTE | 2024-04-12 06:56 | Electrocardiogram Report ---
Test Reason : Blood Pressure : */* mmHG Vent. Rate : 51 BPM Atrial Rate : 51 BPM P-R Int : 172 ms QRS Dur : 96 ms QT Int : 364 ms P-R-T Axes : 44 51 -9 degrees QTcB Int : 335 ms Sinus bradycardia Cannot rule out Anterior infarct , age undetermined Nonspecific T wave abnormality Abnormal ECG No previous ECGs available Confirmed by Sunny Matthew ([id number]) on 04/12/2024 6:55:39 AM Referred By: Confirmed By: Sunny Matthew
--- NOTE | 2024-04-13 06:05 | Electrocardiogram Report ---
Test Reason : Blood Pressure : */* mmHG Vent. Rate : 70 BPM Atrial Rate : 70 BPM P-R Int : 166 ms QRS Dur : 78 ms QT Int : 362 ms P-R-T Axes : 64 24 57 degrees QTcB Int : 390 ms Normal sinus rhythm Inferior infarct , age undetermined Nonspecific ST and T wave abnormality Abnormal ECG When compared with ECG of 10-Apr-2024 11:56, Inferior infarct is now Present ST elevation now present in Inferior leads Confirmed by Sunny Matthew ([id number]) on 04/13/2024 6:04:59 AM Referred By: REFERRED SELF Confirmed By: Sunny Matthew
== END 2024-04-11 14:48 | disposition home or self-care (01) | DRG 322 ==
LOC: ED 11:46 → SUATTDRO 15:01 → 2S 15:01
PROC: CLB.CCO (2024-04-10 15:30)